=== PATIENT | male | born 1965 | race Caucasian/White ===

== ENCOUNTER 2024-01-25 10:43 | Outpatient (AMB) | payer OTHER, SELFPAY ==
--- NOTE | 2024-01-25 11:13 | MHC.PC.OV ---
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 Patient has concern for bilateral ears and may need a referral to ENT. Patient has a spot on the right anticubital space he would like looked at. Data Entry Representative Required: No Accompanied by: Self / Same As Patient Allergies lisinopril Allergy (Severe, Verified 01/25/24 11:39) Cough Medication List - Last Reconciled 01/25/24 by Fouzia Darling MD amlodipine 10 mg PO DAILY ciclopirox 8% topical clotrimazole-betamethasone 1-0.05 % 1 appl topical BID 4 weeks duloxetine 30 mg PO DAILY ketoconazole 2% 1 appl topical 2XW metoprolol succinate ER 25 mg PO BID 90 days metronidazole 0.75% 1 appl topical BEDTIME pantoprazole 40 mg PO DAILY Tobacco use date assessed: 01/25/24 Dental Screening Dental Screen Date: 01/25/24 Did you have a dental visit in the last 12 months?: No Did you have a dental problem in the last 6 months where you did not have access to dental care?: No Was dental information given to patient?: Patient has dentist HPI HPI Comments History of Present Illness Details The patient is a 58-year-old male with a past medical history of hypertension, thoracic aortic aneurysm status post repair, ocular migraines, alcohol abuse elevated LFTs presenting today for follow-up CV: Blood pressure controlled. Patient is currently on amlodipine and metoprolol. He is not currently on a statin. He had a cardiac catheterization in 2021. Echo 10/2021 with normal EF, mild aortic regurgitation. There was mild dilation of the aortic root. The ascending aorta was moderately dilated measured 4.5 in the pulmonary arterial systolic pressure was 22. He is s/p repair GI: Decreased from 5 drinks a night. Liver function tests have been persistently elevated. No abdominal pain or bloating. Upper endoscopy in 2019 with dilation of esophageal stricture. No interval issues. [facility] GI Derm: Reports a family history of skin cancer and at his visit in July requested a Dermatology visit. He had a few lesions removed Neuro: MRI performed. Migraines stable Psych: stable Has seen Urology in the past for hydronephrosis. ED History of colonic polyp. Colonoscopy 05/2021. ROS CONSTITUTIONAL: Denies weight loss, fever and chills. HEENT: Denies changes in vision and hearing. RESPIRATORY: Denies SOB and cough. CV: Denies palpitations and CP GI: Denies abdominal pain, nausea, vomiting and diarrhea. : Denies dysuria and urinary frequency. MSK: Denies new myalgia and joint pain. SKIN: Denies rash and pruritus. NEUROLOGICAL: Denies headache PSYCHIATRIC: Denies recent changes in mood. PHYSICAL EXAM: GENERAL: Alert and oriented x 3. NAD EYES: EOMI. Anicteric. HENT: Moist mucous membranes. No scleral icterus. No cervical lymphadenopathy. LUNGS: Clear to auscultation bilaterally. CARDIOVASCULAR: Regular rate and rhythm. No murmur. No JVD. ABDOMEN: Soft, non-tender +bs EXTREMITIES: No edema. Non-tender. SKIN: No rashes or lesions. Warm. NEUROLOGIC: No focal neurological deficits. CN II-XII grossly intact PSYCHIATRIC: Cooperative. Appropriate mood and affect [facility] Medical History (Updated 01/25/24 @ 13:34 by Fouzia Darling MD) Abnormal endoscopy of upper gastrointestinal tract Pulmonary hypertension Polyp of colon Peripheral nerve disease Ocular migraine Lumbar pain with radiation down right leg Lower esophageal ring Hypertension Septic shock Acute respiratory failure Hiatal hernia Ganglion of tendon sheath Eosinophilic pneumonia Elevated LFTs Thoracic aortic aneurysm History of cardiomegaly Pollen allergies Alcohol use disorder Surgical History History of dental surgery History of tonsillectomy and adenoidectomy Status post dilatation of esophageal stricture History of colonoscopy History of cardiac catheterization Hx of ascending aorta replacement Family History Mother Alzheimer dementia Father Prostate cancer Sarcoma Sister AAA (abdominal aortic aneurysm) Breast cancer Social History Household Members: Significant Other Both parents involved: No Caregiver staying overnight: No Housing: House Are you a primary animal care assistant to a significant other at home: No Do you presently have visiting nurse or other home services: No 75 years or older and lives alone: No Alcohol intake: current Alcohol intake frequency: 3 or more drinks per day Alcohol type: beer Patient Tobacco Use Status: Never used Tobacco e-Cigarette/Vaping Use: Never Used Second Hand Smoke Exposure: Yes service: No Current occupational status: employed Current occupation: [employer] Current occupational exposures/hazards: No Cognitive needs: No Hearing needs: Yes Vision needs: Yes Questionnaire PHQ-9 Over the last 2 weeks, how often have you been bothered by any of the following problems? 1. Little interest or pleasure in doing things: not at all 2. Feeling down, depressed, or hopeless: not at all 3. Trouble falling or staying asleep, or sleeping too much: not at all 4. Feeling tired or having little energy: not at all 5. Poor appetite or overeating: not at all 6. Feeling bad about yourself - or that you are a failure or have let yourself or your family down: not at all 7. Trouble concentrating on things, such as reading the newspaper or watching television: not at all 8. Moving or speaking so slowly that other people could have noticed. Or the opposite - being so fidgety or restless that you have been moving around a lot more than usual: not at all 9. Thoughts that you would be better off or of hurting yourself in some way: not at all Total score: 0 Depression Screening Interpretation: Negative (neg) Depression Screening Done: Yes 45369 - PHQ-9 Billing: Yes Source: Developed by Drs. Jayce Christopher, Nida Fraser, Marcell Damico and colleagues, with an educational robb from [employer]. Thrive Questionnaire Date Thrive assessed: 01/25/24 I am a: Patient What is your living situation today?: I have a steady place to live Within the past 12 months, did the food you bought not last and you didn't have the money to get more?: Never true Within the past 12 months, did you worry whether your food would run out before you got money to buy more?: Never true Do you have trouble paying for medicines?: No Do you have trouble getting transportation to medical appointments?: No Do you have trouble paying your heating and electricity bill?: Yes Do you have trouble taking care of your child, family member or friend?: No Do you have trouble with day-to-day activities such as bathing, preparing meals, shopping, managing finances, etc.?: No Are you currently unemployed and looking for a job?: No Are you interested in more education?: No Please select the resources that you would like help with: None Currently or been in a relationship where the following occur: No concerns reported THRIVE Score: 1 AUDIT C Alcohol Use Questionnaire (AUDIT-C) 1. How often do you have a drink containing alcohol?: 4 or more times a week 2. How many drinks containing alcohol do you have on a typical day when you are drinking?: 3 or 4 3. How often do you have six or more drinks on one occasion?: Never Total Score: 5 JIGNESH-7 AMB Questionnaire JIGNESH-7 Date JIGNESH - 7 assessed: 01/25/24 Feeling nervous, anxious, or on edge: 0 = Not at all Not being able to stop or control worryin = Not at all Worrying too much about different things: 0 = Not at all Trouble relaxin = Not at all Being so restless that it is hard to sit still: 0 = Not at all Becoming easily annoyed or irritable: 0 = Not at all Feeling afraid as if something awful might happen: 0 = Not at all Total JIGNESH-7 score (0-4 normal; 5-9 mild; 10-14 moderate; 15-21 severe): 0 Source: Developed by Drs. Jayce Christopher, Nida Fraser, Marcell Damico and colleagues, with an educational robb from [employer]. JIGNESH-7 Assessment Billing JIGNESH-7 Assessment Tool: JIGNESH-7 Assessment 55235 Physical exam (Primary Care) Vital Signs: Last Vital Signs Pulse 79 01/25/24 11:14 Resp 13 01/25/24 11:14 BP 116/66 01/25/24 11:14 Pulse Ox 96 01/25/24 11:14 Oxygen Delivery Method Room Air 01/25/24 11:14 BMI result Body Mass Index 23.2 Tobacco/Smoking Status: Tobacco use Status Tobacco use date assessed 01/25/24 01/25/24 11:23 Patient Tobacco Use Status Never used Tobacco 01/25/24 11:23 e-Cigarette/Vaping Use Never Used 01/25/24 11:23 PHQ-9: PHQ-9 Score PHQ-9: Total score 0 01/25/24 11:23 Depression Screening Interpretation: Negative (neg) Thrive Assessment: Date of Thrive Assessment Date Thrive assessed 01/25/24 01/25/24 11:23 Currently or been in a relationship where the following occur: No concerns reported Assessment and Plan Assessment & Plan (1) Ocular migraine: Code(s): G43.109 - Migraine with aura, not intractable, without status migrainosus Plan: stable. Interval MRI (2) Hypertension: Code(s): I10 - Essential (primary) hypertension Qualifiers: Hypertension type: primary hypertension Qualified Code(s): I10 - Essential (primary) hypertension Plan: continue current medications. Has cut back and continues to cut back on ETOH (3) Thoracic aortic aneurysm: Code(s): I71.20 - Thoracic aortic aneurysm, without rupture, unspecified Qualifiers: Thoracic aorta location: unspecified Presence of rupture: without rupture Qualified Code(s): I71.20 - Thoracic aortic aneurysm, without rupture, unspecified Plan: s/p repair. Orders: Orders Comprehensive Met. Panel Today I10 - Essential (primary) hypertension, R25.1 - Tremor, unspecified, R79.89 - Other specified abnormal findings of blood chemistry, Z12.5 - Encounter for screening for malignant neoplasm of prostate Lipid Panel Today I10 - Essential (primary) hypertension, R25.1 - Tremor, unspecified, R79.89 - Other specified abnormal findings of blood chemistry, Z12.5 - Encounter for screening for malignant neoplasm of prostate Hemoglobin A1c Today I10 - Essential (primary) hypertension, R25.1 - Tremor, unspecified, R79.89 - Other specified abnormal findings of blood chemistry, Z12.5 - Encounter for screening for malignant neoplasm of prostate TSH reflex Free T4 Today I10 - Essential (primary) hypertension, R25.1 - Tremor, unspecified, R79.89 - Other specified abnormal findings of blood chemistry, Z12.5 - Encounter for screening for malignant neoplasm of prostate Complete Blood Count Auto Diff Today I10 - Essential (primary) hypertension, R25.1 - Tremor, unspecified, R79.89 - Other specified abnormal findings of blood chemistry, Z12.5 - Encounter for screening for malignant neoplasm of prostate Prostate Specific Antigen Today I10 - Essential (primary) hypertension, R25.1 - Tremor, unspecified, R79.89 - Other specified abnormal findings of blood chemistry, Z12.5 - Encounter for screening for malignant neoplasm of prostate Pathologist Review - CBC Today I10 - Essential (primary) hypertension, R25.1 - Tremor, unspecified, R79.89 - Other specified abnormal findings of blood chemistry, Z12.5 - Encounter for screening for malignant neoplasm of prostate Vitamin B12 and Folate Today I10 - Essential (primary) hypertension, R25.1 - Tremor, unspecified, R79.89 - Other specified abnormal findings of blood chemistry, Z12.5 - Encounter for screening for malignant neoplasm of prostate Medications: New clotrimazole-betamethasone 1-0.05 % 1 appl topical BID 4 weeks 45 grams 3RF metoprolol succinate ER FOR REFILLS 25 mg PO BID 90 days 180 tabs 3RF duloxetine FOR REFILLS 30 mg PO DAILY 90 caps 3RF Coding Level of Care Code Est Pt Level 5 (75724) Diagnoses Ocular migraine G43.109 Primary hypertension I10 Hypertension type: primary hypertension Thoracic aortic aneurysm without rupture, unspecified part I71.20 Thoracic aorta location: unspecified Presence of rupture: without rupture Additional Codes JIGNESH-7 Assessment Billing - JIGNESH-7 Assessment Tool: JIGNESH-7 Assessment 46157 ([id number]) Time Spent (min) 44
[2024-01-25 11:14] VITALS: BP 116/66; PULSE 79; RESP 13; O2SAT 96; BMI 23.2
== END 2024-01-25 12:02 | disposition home or self-care (01) ==
PROVIDERS: PCP Internal Medicine; Visit Provider Internal Medicine
DX: G43.109 Migraine with aura, not intractable, without status migrainosus (principal); I10 Essential (primary) hypertension; I71.20 Thoracic aortic aneurysm, without rupture, unspecified
CPT/HCPCS: 99215

== ENCOUNTER 2024-01-29 15:39 | Outpatient (REF) | payer OTHER, SELFPAY ==
[2024-01-29 17:39] LABS: MANUAL DIFF FLAG NO
[2024-01-29 18:13] LABS: Basophils Absolute Auto 0.1 X10*3/uL (0.0-0.2); Basophils Percent Auto 1.1 % (0-2); Eosinophils Absolute Auto 0.1 X10*3/uL (0.0-0.4); Eosinophils Percent Auto 1.1 % (0-4); Hematocrit 42.4 % (42.0-52.0); Hemoglobin 14.3 g/dl (14.0-18.0); Imm Gran Abs Auto 0.01 X10*3/uL (0.00-0.03); Imm Gran Pct Auto 0.2 % (0.0-0.4); Lymphocytes Absolute Auto 0.8 X10*3/uL (1.2-4.9); Lymphocytes Percent Auto 13.7 % (20-40); Mean Corpuscular HGB Conc 33.7 g/dl (31.0-36.0); Mean Corpuscular Hemoglobin 32.4 pg (27.0-33.0); Mean Corpuscular Volume 96.1 fL (80.0-98.0); Mean Platelet Volume 9.4 fL (9.4-12.4); Monocytes Percent Auto 17.8 % (2-11); Neutrophils Absolute Auto 3.7 x10*3/uL (2.0-8.3); Neutrophils Percent Auto 66.1 % (45-73); Platelet Count 275 X10*3/uL (160-400); Red Blood Count 4.41 X10*6/uL (4.60-5.80); White Blood Count 5.6 X10*3/uL (4.8-10.8)
[2024-01-29 18:26] LABS: Alanine Aminotransferase 82 U/L (0-40); Albumin Level 4.3 g/dL (3.5-5.0); Alkaline Phosphatase 90 U/L (39-117); Anion Gap 13 (12-20); Aspartate Amino Transferase 53 U/L (5-37); Bilirubin Total 0.5 mg/dL (0.0-1.0); Blood Urea Nitrogen 17 mg/dL (9-16); Calcium 9.8 mg/dL (8.4-10.2); Carbon Dioxide 30 mmol/L (22-29); Chloride 97 mmol/L (96-108); Cholesterol 227 mg/dL (<200); Estimated Glomerular Filt Rate > 60; Glucose Random 88 mg/dL (60-115); HDL Cholesterol 72 mg/dL (>40); LDL Cholesterol Calculated 129 mg/dL (<100); Potassium 4.1 mmol/L (3.3-5.1); Sodium 136 mmol/L (135-145); Total Protein 7.6 g/dL (6.5-8.0); Triglycerides 133 mg/dL (<150)
[2024-01-29 18:42] LABS: TSH reflex Free T4 2.79 uIU/mL (0.32-4.0)
[2024-01-29 18:55] LABS: Folate 10.9 ng/mL (> or = 4.0); Prostate Specific Antigen 3.14 ng/mL (<0.05-4.0); Vitamin B12 1435 pg/mL (200-900)
[2024-01-30 05:17] LABS: Estimated Average Glucose 111 mg/dL; Hemoglobin A1c % 5.5 % (<6.0)
== END 2024-01-29 15:40 | disposition home or self-care (01) ==
LOC: HO.WFDLDS 15:39
PROVIDERS: Visit Provider Internal Medicine
DX: I10 Essential (primary) hypertension (principal); Z12.5 Encounter for screening for malignant neoplasm of prostate; R25.1 Tremor, unspecified; R79.89 Other specified abnormal findings of blood chemistry
CPT/HCPCS: 80053; 80061; 82607; 82746; 83036; 84153; 84443; 85025

== ENCOUNTER 2024-08-05 08:27 | Outpatient (AMB) | payer OTHER, SELFPAY ==
--- NOTE | 2024-08-05 08:29 | MHC.PC.OV ---
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: No Allergies lisinopril Allergy (Severe, Verified 08/05/24 08:29) Cough Medication List - Last Reconciled 08/05/24 by Fouzia Darling MD amlodipine 10 mg PO DAILY aspirin (Adult Low Dose Aspirin) 81 mg PO DAILY duloxetine 30 mg PO DAILY metoprolol succinate ER 25 mg PO BID 90 days pantoprazole 40 mg PO DAILY Tobacco use date assessed: 01/25/24 Dental Screening Dental Screen Date: 01/25/24 HPI HPI Comments History of Present Illness Details The patient is a 59-year-old male with a past medical history of hypertension, thoracic aortic aneurysm status post repair, ocular migraines, alcohol abuse elevated LFTs presenting today for follow-up CV: Follows with Dr Justice. Blood pressure controlled, 128/58. Patient is currently on amlodipine and metoprolol. He had a cardiac catheterization in 2021. Echo 10/2021 with normal EF, mild aortic regurgitation. There was mild dilation of the aortic root. The ascending aorta was moderately dilated measured 4.5 in the pulmonary arterial systolic pressure was 22. He is s/p repair GI: Decreased from 5 drinks a night. Liver function tests have been persistently elevated. No abdominal pain or bloating. Upper endoscopy in 2019 with dilation of esophageal stricture. No interval issues. [facility] GI Derm: Has seen [facility]. Got removal of some precancerous lesions. Would like to return for skin check Neuro: MRI performed. Migraines stable Psych: stable Has seen Urology in the past for hydronephrosis. ED stable History of colonic polyp. Colonoscopy 05/2021. ROS CONSTITUTIONAL: Denies weight loss, fever and chills. HEENT: Denies changes in vision and hearing. RESPIRATORY: Denies SOB and cough. CV: Denies palpitations and CP GI: Denies abdominal pain, nausea, vomiting and diarrhea. : Denies dysuria and urinary frequency. MSK: Denies new myalgia and joint pain. SKIN: Denies rash and pruritus. NEUROLOGICAL: Denies headache PSYCHIATRIC: Denies recent changes in mood. PHYSICAL EXAM: GENERAL: Alert and oriented x 3. NAD EYES: EOMI. Anicteric. HENT: Moist mucous membranes. No scleral icterus. No cervical lymphadenopathy. LUNGS: Clear to auscultation bilaterally. CARDIOVASCULAR: Regular rate and rhythm. No murmur. No JVD. ABDOMEN: Soft, non-tender +bs EXTREMITIES: No edema. Non-tender. SKIN: No rashes or lesions. Warm. NEUROLOGIC: No focal neurological deficits. CN II-XII grossly intact PSYCHIATRIC: Cooperative. Appropriate mood and affect [facility] Medical History Abnormal endoscopy of upper gastrointestinal tract Pulmonary hypertension Polyp of colon Peripheral nerve disease Ocular migraine Lumbar pain with radiation down right leg Lower esophageal ring Hypertension Septic shock Acute respiratory failure Hiatal hernia Ganglion of tendon sheath Eosinophilic pneumonia Elevated LFTs Thoracic aortic aneurysm History of cardiomegaly Pollen allergies Alcohol use disorder Surgical History History of dental surgery History of tonsillectomy and adenoidectomy Status post dilatation of esophageal stricture History of colonoscopy History of cardiac catheterization Hx of ascending aorta replacement Family History Mother Alzheimer dementia Father Prostate cancer Sarcoma Sister AAA (abdominal aortic aneurysm) Breast cancer Social History Household Members: Significant Other Both parents involved: No Caregiver staying overnight: No Housing: House Are you a primary critical care unit nurse to a significant other at home: No Do you presently have visiting nurse or other home services: No 75 years or older and lives alone: No Alcohol intake: current Alcohol intake frequency: 3 or more drinks per day Alcohol type: beer Patient Tobacco Use Status: Never used Tobacco e-Cigarette/Vaping Use: Never Used Second Hand Smoke Exposure: Yes service: No Current occupational status: employed Current occupation: [employer] Current occupational exposures/hazards: No Cognitive needs: No Hearing needs: Yes Vision needs: Yes Questionnaire PHQ-9 Over the last 2 weeks, how often have you been bothered by any of the following problems? 1. Little interest or pleasure in doing things: not at all 2. Feeling down, depressed, or hopeless: not at all 3. Trouble falling or staying asleep, or sleeping too much: not at all 4. Feeling tired or having little energy: not at all 5. Poor appetite or overeating: not at all 6. Feeling bad about yourself - or that you are a failure or have let yourself or your family down: not at all 7. Trouble concentrating on things, such as reading the newspaper or watching television: not at all 8. Moving or speaking so slowly that other people could have noticed. Or the opposite - being so fidgety or restless that you have been moving around a lot more than usual: not at all 9. Thoughts that you would be better off or of hurting yourself in some way: not at all Total score: 0 Depression Screening Interpretation: Negative Depression Screening Done: Yes 73840 - PHQ-9 Billing: Yes Source: Developed by Drs. Jayce Christopher, Nida Fraser, Marcell Damico and colleagues, with an educational robb from [employer]. Thrive Questionnaire Date Thrive assessed: 08/05/24 I am a: Patient What is your living situation today?: I have a steady place to live Within the past 12 months, did the food you bought not last and you didn't have the money to get more?: Never true Within the past 12 months, did you worry whether your food would run out before you got money to buy more?: Never true Do you have trouble paying for medicines?: No Do you have trouble getting transportation to medical appointments?: No Do you have trouble paying your heating and electricity bill?: Yes Do you have trouble taking care of your child, family member or friend?: No Do you have trouble with day-to-day activities such as bathing, preparing meals, shopping, managing finances, etc.?: No Are you currently unemployed and looking for a job?: No Are you interested in more education?: No Please select the resources that you would like help with: Utilities Currently or been in a relationship where the following occur: No concerns reported THRIVE Score: 1 AUDIT C Alcohol Use Questionnaire (AUDIT-C) 1. How often do you have a drink containing alcohol?: 2-3 times a week 2. How many drinks containing alcohol do you have on a typical day when you are drinking?: 1 or 2 3. How often do you have six or more drinks on one occasion?: Never Total Score: 3 JIGNESH-7 AMB Questionnaire JIGNESH-7 Date JIGNESH - 7 assessed: 08/05/24 Feeling nervous, anxious, or on edge: 0 = Not at all Not being able to stop or control worryin = Not at all Worrying too much about different things: 0 = Not at all Trouble relaxin = Not at all Being so restless that it is hard to sit still: 0 = Not at all Becoming easily annoyed or irritable: 0 = Not at all Feeling afraid as if something awful might happen: 0 = Not at all Total JIGNESH-7 score (0-4 normal; 5-9 mild; 10-14 moderate; 15-21 severe): 0 Source: Developed by Drs. Jayce Christopher, Nida Fraser, Marcell Damico and colleagues, with an educational robb from [employer]. JIGNESH-7 Assessment Billing JIGNESH-7 Assessment Tool: JIGNESH-7 Assessment 46801 Physical exam (Primary Care) Vital Signs: Last Vital Signs Pulse 56 08/05/24 08:34 Resp 14 08/05/24 08:34 BP 128/58 L 08/05/24 08:34 Pulse Ox 95 08/05/24 08:34 Oxygen Delivery Method Room Air 08/05/24 08:34 BMI result Body Mass Index 22.9 Tobacco/Smoking Status: Tobacco use Status Tobacco use date assessed 01/25/24 08/05/24 08:30 Patient Tobacco Use Status Never used Tobacco 08/05/24 08:38 e-Cigarette/Vaping Use Never Used 08/05/24 08:38 PHQ-9: PHQ-9 Score PHQ-9: Total score 0 08/05/24 08:41 Depression Screening Interpretation: Negative Thrive Assessment: Date of Thrive Assessment Date Thrive assessed 08/05/24 08/05/24 08:36 Currently or been in a relationship where the following occur: No concerns reported Coding Level of Care Code Est Pt Prev Care 40-64y(07471) Diagnoses Physical exam Z00.00 Primary hypertension I10 Hypertension type: primary hypertension Thoracic aortic aneurysm without rupture, unspecified part I71.20 Thoracic aorta location: unspecified Presence of rupture: without rupture Additional Codes JIGNESH-7 Assessment Billing - JIGNESH-7 Assessment Tool: JIGNESH-7 Assessment 94416 ([id number]) PHQ-9 - 42318 - PHQ-9 Billing: Yes ([id number]) Assessment & Plan Assessment & Plan (1) Physical exam: Code(s): Z00.00 - Encounter for general adult medical examination without abnormal findings Category: Medical Plan: 59 year old for physical exam. Chronic medical conditions reviewed. Interval history reviewed. Preventive measures for age reviewed. Medications reviewed. Labs ordered (2) Hypertension: Code(s): I10 - Essential (primary) hypertension Category: Medical Qualifiers: Hypertension type: primary hypertension Qualified Code(s): I10 - Essential (primary) hypertension Plan: well controlled on current medications (3) Thoracic aortic aneurysm: Code(s): I71.20 - Thoracic aortic aneurysm, without rupture, unspecified Category: Medical Qualifiers: Thoracic aorta location: unspecified Presence of rupture: without rupture Qualified Code(s): I71.20 - Thoracic aortic aneurysm, without rupture, unspecified Plan: continue follow up with cardiology for monitoring Orders: Orders Comprehensive Met. Panel Today I10 - Essential (primary) hypertension, I71.20 - Thoracic aortic aneurysm, without rupture, unspecified, Z00.00 - Encounter for general adult medical examination without abnormal findings Lipid Panel Today I10 - Essential (primary) hypertension, I71.20 - Thoracic aortic aneurysm, without rupture, unspecified, Z00.00 - Encounter for general adult medical examination without abnormal findings Pathologist Review - CBC Today I10 - Essential (primary) hypertension, I71.20 - Thoracic aortic aneurysm, without rupture, unspecified, Z00.00 - Encounter for general adult medical examination without abnormal findings TSH reflex Free T4 Today I10 - Essential (primary) hypertension, I71.20 - Thoracic aortic aneurysm, without rupture, unspecified, Z00.00 - Encounter for general adult medical examination without abnormal findings Prostate Specific Antigen Today Z12.5 - Encounter for screening for malignant neoplasm of prostate Complete Blood Count Auto Diff Today I10 - Essential (primary) hypertension, I71.20 - Thoracic aortic aneurysm, without rupture, unspecified, Z00.00 - Encounter for general adult medical examination without abnormal findings Referrals Dermatology Referral I10 - Essential (primary) hypertension, I71.20 - Thoracic aortic aneurysm, without rupture, unspecified, Z00.00 - Encounter for general adult medical examination without abnormal findings Medications: New amlodipine 10 mg PO DAILY 90 tabs 3RF pantoprazole 40 mg PO DAILY 90 tabs 3RF Changed From metoprolol succinate ER FOR REFILLS 25 mg PO BID 90 days 180 tabs 3RF To metoprolol succinate ER 25 mg PO BID 90 days 180 tabs 3RF From duloxetine FOR REFILLS 30 mg PO DAILY 90 caps 3RF To duloxetine 30 mg PO DAILY 90 caps 3RF
[2024-08-05 08:34] VITALS: BP 128/58; PULSE 56; RESP 14; O2SAT 95; BMI 22.9
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
--- OUTSIDE RECORDS SUMMARY | 2024-08-05 09:09 | XMS_ITS | Clinical Summary ---
Author Organization [facility] Address [address] [place] [address] Care Team Providers Care Cook Helper Fruit Name Role Phone Fouzia Darling MD Primary Care Provider [phone] Allergies No known active allergies Medications LORazepam (Ativan) 2 mg tablet Take 1 tablet (2 mg total) by mouth every 4 (four) hours as needed for anxiety (shaking) for up to 3 days. 6 tablet 07/08/2024 Active Active Problems No known active problems Encounters Date Type Department Care Team Description 07/08/2024 6:24 PM EST - 07/08/2024 9:58 PM EST Emergency [facility] Department of Emergency Services [address] [place] [address] Dat Muro MD Alcohol withdrawal syndrome without complication (HCC) (Primary Dx) Discharge Disposition: Home or Self Care from Last 3 Months Social History Tobacco Use Types Packs/Day Years [...] No / Unsure 07/08/2024 5:00 PM EST Last Filed Vital Signs Vital Sign Reading [...] Mass Index 22.52 07/08/2024 5:02 PM EST Plan of Treatment Health Maintenance Due Date Last Done Comments CT Colonography 1964 Colonoscopy 1964 Colorectal Cancer Screening 1964 FIT-DNA (Cologuard) 1964 FIT 1964 FOBT 1964 Flex Sigmoidoscopy - 5y 1964 HIV Screening 1964 Hepatitis C Screening 1982 Zoster Vaccines (1 of 2) 2014 COVID-19 Vaccine ( season) 2024 Influenza Vaccine (#1) 2024 2, 05/09/2021, 03/15/2020, Additional history exists DTaP,Tdap,and Td Vaccines (2 - Td or Tdap) 03/20/2029 03/20/2019 HPV Vaccines Aged Out No longer eligi ble based on patient's age to complete this topic Hepatitis A Vaccines Aged Out No long er eligible based on patient's age to complete this topic MMR Vaccines Aged Out No longer eligi ble based on patient's age to complete this topic Meningococcal Vaccine Aged Out No cameron william eligible based on patient's age to complete this topic Pneumococcal Vaccine: Pediatrics (0 to 5 Years) and At-Risk Patients (6 to 64 Years) Aged Out No longer eligible based on patient's age to complete this topic Procedures Procedure Name Priority Date/Time Associated Diagnosis Comments XR CHEST 2 VW STAT 07/08/2024 9:[address] HEAD WO IV CONTRAST STAT 07/08/2024 8:48 PM EST COMPLETE BLOOD COUNT WITH AUTO DIFFERENTIAL STAT 07/08/2024 7:38 PM EST LACTIC ACID, PLASMA STAT 07/08/2024 7 :38 PM EST HEPATIC FUNCTION PANEL STAT 07/08/2024 7:38 PM EST BASIC METABOLIC PANEL STAT 07/08/2024 7:38 PM EST COMPLETE BLOOD COUNT AND DIFFERENTIAL STAT 07/08/2024 7:38 PM EST SARS, INFLUENZA A, B, AND RSV PCR (CEPHEID) Routine 07/08/2024 7:38 PM EST POCT GLUCOSE METER STAT 07/08/2024 5: 30 PM EST from Last 3 Months Results * XR chest 2 vw (07/08/2024 [...] to the content of this report. AF^0 Dat Muro MD IMG XR PROCEDURES Final [...] the final report indicates that Julio Kim has personally reviewed this examination initially [...] report. AF^0 us Dat Muro MD IMG CT PROCEDURES Final Result * SARS, Influenza A,B, and RSV PCR (CEPHEID) (07/08/2024 7:38 PM EST) SARS-COV-2 PCR (Cepheid) Negative Negative 07/08/2024 10:16 PM EST [facility] Influenza A PCR (Cepheid) Not Detected Not Detected 07/08/2024 10:16 PM EST [facility] Influenza B PCR (Cepheid) Not Detected Not Detected 07/08/2024 10:16 PM EST [facility] RSV PCR (Cepheid) Not Detected Not Detected 07/08/2024 10:16 PM EST [facility] Swab Nasopharyngeal structure / Unknown Non-blood Collection / Unknown 07/08/2024 7:38 PM EST 07/08/2024 7:51 PM EST [facility] - 07/08/2024 10:16 PM EST The CepOwnLocalid Flu A/B/RSV/SARS CoV-2 assay performed on the [employer] System is a multiplex real-time RT-PCR intended for the qualitative detection and differentiation of influenza A, influenza B, RSV, and SARS CoV-2 RNA in nasopharyngeal or anterior nasal swab specimens from patients exhibiting signs/symptoms of respiratory viral illness. ??The test is FDA-cleared, and its performance was verified by [facility]. ?? A negative/not detected result does not exclude viral infection and should not be used as the sole basis for treatment or patient management decisions. ?? Results must be considered in the context of clinical observations, patient history, and epidemiological information. us Dat Muro MD LAB MICRO - GENERAL ORDERABLES NO STAT Final Result Performing Organization Address City/State/[facility] Co de Phone Number [facility] [address] [place] [address], * (ABNORMAL) Complete Blood Count with Auto Differential (07/08/2024 7:38 PM EST) Pathologist [facility] White Cell Count 5.2 3.8 - 10.6 10*3/uL 07/08/2024 8:00 PM EST [facility] Red Cell Count 4.81 4.40 - 5.90 10*6/??L 07/08/2024 8:00 PM [facility] Hemoglobin 15.5 13.0 - 18.0 g/dL 07/08/2024 8:00 PM [facility] Hematocrit 46.5 40.0 - 52.0 % 07/08/2024 8:00 PM [facility] MCV 96.7 80.0 - 100.0 fL 07/08/2024 8:00 PM [facility] MCH 32.2 26.0 - 34.0 pg 07/08/2024 8:00 PM [facility] MCHC 33.3 32.0 - 36.0 g/dL 07/08/2024 8:00 PM [facility] RBC Distribution Width 12.3 11.6 - 14.8 % 07/08/2024 8:00 PM [facility] Platelet count 160 150 - 440 10*3/uL 07/08/2024 8:00 PM [facility] Neutrophils 71.7(H) 40.0 - 70.0 % 07/08/2024 8:00 PM [facility] Immature Granulocytes 0.2 0.0 - 0.6 % 07/08/2024 8:00 PM [facility] Lymphocytes 10.4(L) 20.0 - 50.0 % 07/08/2024 8:00 PM [facility] Monocytes 16.9(H) 4.0 - 12.0 % 07/08/2024 8:00 PM [facility] Eosinophils 0.2 0.0 - 6.0 % 07/08/2024 8:00 PM [facility] Basophils 0.6 0.0 - 2.0 % 07/08/2024 8:00 PM [facility] Absolute Neutrophil Ct. 3.7 1.4 - 6.3 10*3/uL 07/08/2024 8:00 PM [facility] Absolute Lymphocyte Ct. 0.5(L) 0.7 - 4.5 10*3/uL 07/08/2024 8:00 PM EST [facility] Absolute Monocyte Ct. 0.9(H) 0.2 - 0.8 10*3/uL 07/08/2024 8:00 PM EST [facility] Absolute Eosinophil Ct. 0.0 0.0 - 0.3 10*3/uL 07/08/2024 8:00 PM EST [facility] Absolute Basophil Ct. 0.0 0.0 - 0.2 10*3/uL 07/08/2024 8:00 PM EST [facility] nRBC 0.0 0.0 - 0.0 % 07/08/2024 8:00 PM EST [facility] Blood Venous blood specimen / Unknown Venipuncture / Unknown 07/08/2024 7:38 PM EST 07/08/2024 7:54 PM EST Dat Muro MD LAB BLOOD ORDERABLES Final Res ult [facility] [address] [place] [address], [place] [phone] * Lactic acid, plasma (07/08/2024 7:38 PM EST) Lactic Acid 0.8 0.5 - 1.9 mmol/L 07/08/2024 8:20 PM EST [facility] Blood Venous blood specimen / Unknown Venipuncture / Unknown 07/08/2024 7:38 PM EST 07/08/2024 7:55 PM EST us Dat Muro MD LAB BLOOD ORDERABLES Final Res ult [facility] [address] [place] [address], [place] [phone] * (ABNORMAL) Hepatic function panel (07/08/2024 7:38 PM EST) Total Bilirubin 0.8 0.1 - 1.2 mg/dL 07/08/2024 8:22 PM EST [facility] Bilirubin, Direct 0.4 0.0 - 0.5 mg/dL 07/08/2024 8:22 PM EST [facility] Alkaline Phosphatase 106 39 - 113 U/L 07/08/2024 8:22 PM EST [facility] AST 100(H) 17 - 35 U/L 07/08/2024 8:22 PM EST [facility] ALT (SGPT) 101(H) 8 - 39 U/L 07/08/2024 8:22 PM EST [facility] Albumin 4.7 3.8 - 5.3 g/dL 07/08/2024 8:22 PM EST [facility] Total Protein 8.1 6.2 - 8.1 g/dL 07/08/2024 8:22 PM EST [facility] Blood Venous blood specimen / Unknown Venipuncture / Unknown 07/08/2024 7:38 PM EST 07/08/2024 7:55 PM EST us Dat Muro MD LAB BLOOD ORDERABLES Final Res ult Performing Organization Address City/State/[facility] Co de Phone Number [facility] [address] [place] [address], * (ABNORMAL) Basic metabolic panel (07/08/2024 7:38 PM EST) Pathologist [facility] Sodium 139 137 - 144 mmol/L 07/08/2024 8:22 PM EST [facility] Potassium 4.8 3.6 - 5.1 mmol/L 07/08/2024 8:22 PM EST [facility] Chloride 100 100 - 111 mmol/L 07/08/2024 8:22 PM EST [facility] CO2 28 23 - 32 mmol/L 07/08/2024 8:22 PM [facility] Anion gap 11 3 - 11 mmol/L 07/08/2024 8:22 PM [facility] BUN 14 8 - 24 mg/dL 07/08/2024 8:22 PM [facility] Creatinine 0.80 0.60 - 1.20 mg/dL 07/08/2024 8:22 PM [facility] Glucose 93 70 - 200 mg/dL 07/08/2024 8:22 PM [facility] Comment: Normal fasting glucose ?75-99 mg/dL Impaired fasting glucose ?100 - 125 mg/dL Fasting glucose ? >125 mg/dL - provisional diagnosis of diabetes mellitus Random glucose ?>= 200 mg/dl is considered diagnostic for diabetes ADA Guidelines: Classification and Diagnosis of Diabetes: Standards of Medical Care in Diabetes - 2020, Diabetes Care 2020; S15-S33. Calcium 10.6(H) 8.4 - 10.2 mg/dL 07/08/2024 8:22 PM [facility] eGFR 101 >60 mL/min/1. 73m*2 07/08/2024 8:22 PM [facility] Comment: Calculation based on the Chronic [...] ? 75 ml/min/1.73 m2 ? Pursuant to [place] Public Act 06-120(1)(b)(1). ?? The 2020 CKD-EPI calculation used to estimate eGFR has only been validated for patients 18 years or older. Blood Venous blood specimen / Unknown Venipuncture / Unknown 07/08/2024 7:38 PM EST 07/08/2024 7:55 PM EST us Dat Muro MD LAB BLOOD ORDERABLES Final Res ult [facility] [address] [place] [address], * POCT Glucose, meter (07/08/2024 5:30 PM EST) POCT Glucose 87 70 - 200 mg/dL 07/08/2024 5:31 PM EST [facility] Blood 07/08/2024 5:30 PM EST 07/08/2024 5:31 PM EST Narrative [facility] - 07/08/2024 5:31 PM EST The lower limit of serum glucose reference interval changes from 75 mg/dL to 70 mg/dL on 12/28/2021 to comply with [place] Diabetes Association (ADA)guidelines. Point of Care Device. ??Please refer to collection date and time. us Default Authenticator Interface LAB POCT ORDERAB LES - DEVICE Final Result [facility] [address] [place] [address], from Last 3 Months Insurance [facility] OPEN ACCESS Care Teams Cook Helper Fruit Relationship Specialty Start Date End Date Fouzia Darling MD [address] [place] [phone] PCP - General Internal Medicine 07/08/24
--- OUTSIDE RECORDS SUMMARY | 2024-08-05 09:10 | XMS_ITS | Encounter Summary ---
Author Organization [facility] Address [address] [place] [address] Care Team Providers Care Spare Hand Name Role Phone Pcp, No Primary Care Provider Unavailabl e Reason for Referral * Emergency Services (Routine) - Authorized Specialty Diagnoses / Procedures Referred By Kumar leroy Referred To Contact Emergency Medicine Diagnoses Tremor of both hands Dahlia Moyer APRN [address] [place] [address] [facility] [place] [address] Referral ID Status Reason Start Date Expiration Date V isits Requested Visits Authorized [id number] Authorized Consult 07/08/2024 07/09/2025 1 1 Question Answer Was this patient transferred from Urgent Care to the ED? Yes Decision Making Capacity? Yes Receiving Facility? Other (comment) - [facility] Reason for Transfer Needs higher level of care Does the patient require an ambulance? No Method of Transport? Did you attempt to contact the receiving facility? Yes Comments Fatigue and chills x 2 days, new onset of bilateral upper extremity tremors since today Reason for Visit * Reason Comments Chills Chills, fatigue x 2 days. Encounter Details Date Type Department Care Team (Late st Contact Info) Description 07/08/2024 3:30 PM EST Office Visit [facility] [address] [phone] José Luis Salcedo MD [address] [place] [address] Dahlia Moyer APRN [address] [place] [address] Tremor of both hands (Primary Dx); Chills; Encounter for screening laboratory testing for COVID-19 virus Social History Tobacco Use Types Packs/Day Years Used Date Smoking Tobacco: Never Smokeless Tobacco: Never Tobacco Cessation:Counseling Given: Not Answered Alcohol Use Standard Drinks/Week Comments Yes 0 (1 standard drink = 0.6 oz pur e alcohol) Sex and Gender Information Value Date Recorded Sex Assigned at Not on file Gender Identity Not on file Sexual Orientation Not on file documented as of this encounter Last Filed Vital Signs Vital Sign Reading Time Taken Comments Blood Pressure 151/89 07/08/2024 3:36 PM EST Pulse 98 07/08/2024 3:36 PM EST Temperature 36.8 ??C (98.2 ??F) 07/08/2024 3:36 PM ES T Respiratory Rate 16 07/08/2024 3:36 PM EST Oxygen Saturation 95% 07/08/2024 3:36 PM EST Inhaled Oxygen Concentration - - Weight 81.6 kg (180 lb) 07/08/2024 3:36 PM EST Height 190.5 cm (6' 3 ) 07/08/2024 3:36 PM EST Body Mass Index 22.5 07/08/2024 3:36 PM EST documented in this encounter Progress Notes * Dahlia Taqueria Moyer, FINISHING TUNNEL OPERATOR - 07/08/2024 4:15 PM EST Assessment & Plan Felipe was seen today for chills. Diagnoses and all orders for this visit: Tremor of both hands - Amb Referral to Emergency Medicine Chills - POCT Rapid Influenza - POCT Glucose, Fingerstick Encounter for screening laboratory testing for COVID-19 virus - POCT Rapid COVID-19 Antigen (FDA EUA) Medical Decision Making and Data Synthesis: Pt NAD. VSS. LCTAB. HRRR. Covid, flu ordered, neg. Results of tests were reviewed with the patient.POC glucose 161. ddx including but not limited to: benign essential tremor, medication induced tremor, dystonic tremor, cerebral disease, MS, hypothyroidism, anxiety, psychogenic tremor, DTs, TIA, CVA, tumor/cancer Given acute onset of b/l UE tremor, age, hx - advised patient he needs further work up in the ER. Patient in agreement with plan and is willing to go to [facility]. Significant other to drive patient to ER. Expect called. Patient in agreement with plan. Answered all questions. Communication barriers and lifestyle preferences were addressed with the patient and/or family . The care plan including medications and self-management goals/symptomatic treatment were reviewed to the best of the patient and/or family's ability. Educated to follow up with PCP for ongoing management. ER with new or worsening symptoms. All questions and concerns were answered. Patient and/or family verbalized understanding of the plan of care. Subjective Felipe Li is a 59 y.o. male HPI Presents for fatigue and chills x2 days, with new onset b/l UE/hand tremor today. PMH ETOH abuse. Denies ETOH or substance use. FHx parkinsons disease. No otc meds. Denies any other systemic symptoms. Denies fever, ST, ear pain, rhinorrhea, cp, cough, sob, dyspnea, wheezing, N/V/D, MARISCAL, change in vision, abd px, loss of taste or smell, or sinus pain. Denies any recent illness or ABX use. Other Pertinent History: History reviewed. No pertinent past medical history. History reviewed. No pertinent surgical history. Social History Tobacco Use ??? Smoking status: Never ??? Smokeless tobacco: Never Substance Use Topics ??? Alcohol use: Yes ??? Drug use: Never History reviewed. No pertinent family history. Review of Systems: All other systems reviewed and are negative except where documented below: Cardiovascular: No Chest pain Pulmonary: No SOB, no dyspnea, no wheezing Gastrointestinal: No N/Vomiting; No Diarrhea, no abd px Constitutional: No Fever, chills Objective Vitals: 07/08/24 1536 BP: (!) 151/89 Pulse: 98 Resp: 16 Temp: 98.2 ??F (36.8 ??C) SpO2: 95% Weight: 81.6 kg (180 lb) Height: 1.905 m (6' 3 ) Vital signs reviewed. Constitutional: Well-appearing, in no apparent respiratory distress. Does not appear toxic Eyes: Conjunctivae Clear, No Icterus. PERRLA b/l. EOMI b/l. Ear, Nose, Mouth, Throat: Grossly normal inspection. Normal voice, handling secretions normally. Tonsils normal. Uvula midline. Neck: Supple, no nuchal signs, No cervical lymphadenopathy. No JVD. Cardiovascular: Regular rate and rhythm. Normal S1, S2. No extra heart sounds. Respiratory: Breath sounds clear and equal bilaterally, no wheezes, rales, or rhonchi. Gastrointestinal: Soft and No tenderness. Nondistended. Nontender to palpation in all 4 quadrants, epigastric, umbilical and suprapubic areas. No pulsatile masses or bulging. Negative Schultz sign, Rovsing sign, nontender McBurney's point. Back: No CVAT Musculoskeletal: No extremity tenderness, no peripheral edema. Skin: Normal for age and race, grossly normal temperature and turgor. No acute rash. Neurologic: Visible tremor of bilateral hands/upper extremities. Alert and appropriate, no apparentacute deficits. Equal strength in all four extremities. Normal gait. CN 2-12 grossly intact. Psychiatric: Mood and manner are appropriate. Grooming and personal hygiene are appropriate. Hematologic: No significant bruising, petechia, or purpura. Lymphatic: No significant lymphadenopathy Results for orders placed or performed in visit on 07/08/24 POCT Rapid Influenza Collection Time: 07/08/24 3:52 PM Result Value Ref Range Inflenza A Ag Negative Negative Influenza B Ag Negative Negative POCT Glucose, Fingerstick Collection Time: 07/08/24 3:53 PM Result Value Ref Range POC Glucose 161 MG/DL Lot Number [id number] [employer] Pass POCT Rapid COVID-19 Antigen (FDA EUA) Collection Time: 07/08/24 3:54 PM Result Value Ref Range COVID-19 Rapid Antigen, POC (FDA EUA) Negative Result Comments: A Positive Result does not rule outbacterial infection or co-infection with other viruses. Clinical correlation advised. A Negative Result in symptomatic patients should be considered presumptive and needs confirmation by PCR. Kit Lot Number [id number] [employer] Pass 07/08/24 5:30 PM Dahlia Moyer PA-C documented in this encounter Plan of Treatment Scheduled Referrals Name Type Priority Associated Diagnoses Orde r Schedule Amb Referral to Emergency Medicine Outpatient Referral Routine Tremor of both hands Ordered: 07/08/2024 documented as of this encounter Procedures Procedure Name Priority Date/Time Associated Diagnosis Comments POCT RAPID COVID-19 AG (FDA EUA) Routine 07/08/2024 3:54 PM EST Encounter for screening laboratory testing for COVID-19 virus POCT GLUCOSE, FINGERSTICK (CHARGE) Routine 07/08/2024 3:53 PM EST Chills POCT RAPID INFLUENZA Routine 07/08/2024 3:52 PM EST Chills documented in this encounter Results * POCT Rapid COVID-19 Antigen (FDA EUA) (07/08/2024 3:54 PM EST) COVID-19 Rapid Antigen, POC (FDA EUA) Negative Result Comments: A Positive Result does not rule out bacterial infection or co-infection with other viruses. Clinical correlation advised. A Negative Result in symptomatic patients should be considered presumptive and needs confirmation by PCR. Kit Lot Number [id number] [employer] Pass Swab, Nasal Specimen from nose / Unknown 07/08/2024 3:54 PM EST Dahlia Moyer APRN POINT OF CARE TEST ORDERABLES * POCT Glucose, Fingerstick (07/08/2024 3:53 PM EST) POC Glucose 161 MG/DL Lot Number [id number] [employer] Blood 07/08/2024 3:53 PM EST Dahlia Moyer FINISHING TUNNEL OPERATOR POINT OF CARE TEST ORDERABLES * POCT Rapid Influenza (07/08/2024 3:52 PM EST) Inflenza A Ag Negative Negative Influenza B Ag Negative Negative Nasopharyngeal 07/08/2024 3: 52 PM EST Dahlia Moyer FINISHING TUNNEL OPERATOR POINT OF CARE TEST ORDERABLES documented in this encounter Visit Diagnoses Diagnosis Tremor of both hands- Primary Chills Chills (without fever) Encounter for screening laboratory testing for COVID-19 virus documented in this encounter Care Teams Spare Hand Relationship Specialty Start Date End Date Pcp, No PCP - General General Medicine 08/02/22 documented as of this encounter
--- OUTSIDE RECORDS SUMMARY | 2024-08-05 09:10 | XMS_ITS | Encounter Summary ---
Author Organization [facility] Address [address] [place] [address] Care Team Providers Care Insulation Blower Name Role Phone Pcp, No Primary Care Provider Unavailabl e Encounter Details Date Type Department Care Team (Late st Contact Info) Description 08/02/2022 11:29 AM EST Hospital Encounter [facility] [address] [place] [phone] José Luis Salcedo MD [address] [place] [address] Social History Tobacco Use Types Packs/Day Years [...] IMPRESSION: Cardiomegaly. Lungs are clear. Francoise Carmen APRN IMG DIAGNOSTIC IMAGI NG ORDERABLES documented in this encounter Visit Diagnoses Not on filedocumented in this encounter Care Teams Insulation Blower Relationship Specialty Start Date End Date Pcp, No PCP - General General Medicine 08/02/22 documented as of this encounter
--- OUTSIDE RECORDS SUMMARY | 2024-08-05 09:10 | XMS_ITS ---
Author Name [facility] Organization Unknown Results Test Name/Text Value Interpretation Date Range Source RBC DISTRIBUTION WIDTH 12.3% Normal [id number] 11.6 - 14.8 [facility] AUTO NRBC % 0% Normal [id number] 0 - [address] [facility] [address] 3.710*3/uL Normal [id number] 1.4 - 6.[address] [facility] [address] 0.910*3/uL Above high normal [id number] 0.2 - 0.8 [facility] MCHC 33.3g/dL Normal [id number] 32 - 36 [facility] MCH 32.2pg Normal [id number] 26 - 34 [facility] IMMATURE GRANULOCYTE % 0.2% Normal [id number] 0 - 0.6 [facility] EOSINOPHIL % 0.2% Normal [id number] 0 - 6 [facility] [address] 010*3/uL Normal [id number] 0 - 0. 2 [facility] MCV 96.7fL Normal [id number] 80 - 100 [facility] PLATELET COUNT 39586*3/uL Normal [id number] 150 - 440 C [facility] BASOPHILS % 0.6% Normal [id number] 0 - [address] [facility] [address] 0.510*3/uL Below low normal [id number] 0.7 - 4.[address] [facility] [address] 010*3/uL Normal [id number] 0 - 0.3 [facility] HEMATOCRIT 46.5% Normal [id number] 40 - 52 [facility] WHITE CELL COUNT 5.210*3/uL Normal [id number] 3.8 - 10. 6 [facility] RED CELL COUNT 4.8110*6/???L Normal [id number] 4.4 - 5. 9 [facility] MONOCYTE % 16.9% Above high normal [id number] 4 - 12 [facility] NEUTROPHIL % 71.7% Above high normal [id number] 40 - 7 0 [facility] HEMOGLOBIN 15.5g/dL Normal [id number] 13 - 18 [facility] LYMPHOCYTE % 10.4% Below low normal 20 - 50 [facility] LACTIC ACID 0.8mmol/L Normal 0.5 - 1.9 [facility] ALT (SGPT) 101U/L Above high normal 8 - 39 [facility] PROTEIN TOTAL 8.1g/dL Normal 6.2 - 8.1 [facility] AST (SGOT) 100U/L Above high normal 17 - 35 [facility] BILIRUBIN, TOTAL 0.8mg/dL Normal 0.1 - 1.2 [facility] ALKALINE PHOSPHATASE 106U/L Normal 39 - 1 13 [facility] BILIRUBIN, DIRECT 0.4mg/dL Normal 0 - 0.5 [facility] ALBUMIN, AUTOMATED 4.7g/dL Normal 3.8 - 5. 3 [facility] CREATININE 0.8mg/dL Normal 0.6 - 1.2 [facility] POTASSIUM 4.8mmol/L Normal 3.6 - 5.1 [facility] BICARBONATE 28mmol/L Normal 23 - 32 [facility] GLOMERULAR FILTRATION RATE ML/MIN/1.73 SQ M.PREDICTED 101mL/min/1.73m *2 Normal 60 - [facility] SODIUM 139mmol/L Normal 137 - 144 [facility] CHLORIDE 100mmol/L Normal 100 - 111 [facility] CALCIUM, TOTAL 10.6mg/dL Above high normal 8.4 - 10.2 [facility] UREA NITROGEN 14mg/dL Normal 8 - 24 [facility] ANION GAP 11mmol/L Normal 3 - 11 [facility] GLUCOSE 93mg/dL Normal 70 - 200 [facility] INFLUENZA B PCR (CEPHEID) Not Detected Normal [facility] INFLUENZA A PCR (CEPHEID) Not Detected Normal [facility] RSV PCR (CEPHEID) Not Detected Normal [facility] SARS-COV-2 PCR (CEPHEID) Negative Normal [id number] [facility] POCT GLUCOSE 87mg/dL Normal [id number] 70 - 200 [facility] History of Medication Use Medication Directions Dispensed Refills Start Date End Date Stat fluticasone (FloVENT HFA) 44 mcg/puff inhaler Inhale 1 puff 2 (two) times a day. 08/02/2022 active ascorbic acid (VITAMIN C) 250 MG tablet Take 250 mg by mouth daily. active metoPROLOL SUCCINATE (TOPROL-XL) 25 MG 24 hr tablet Take 25 mg by mouth 2 times a day. active benzonatate (TESSALON) 200 MG capsule Take 1 capsule (200 mg total) by mouth 3 (three) times a day as needed for cough. 08/02/2022 active Cyanocobalamin (VITAMIN B 12 PO) Take 1 tablet by mouth. 05/02/2022 active PANTOprazole (PROTONIX) 40 MG EC tablet Take 40 mg by mouth. 05/02/2022 active doxycycline (MONODOX) 100 MG capsule Take 1 capsule (100 mg total) by mouth 2 (two) times a day. 08/02/2022 08/10/2022 active Problems Problem Status Onset Date Problem Type Date of Resoluti on Source Ganglion of tendon sheath active 2022-08-02 ProblemAct [facility] Cardiomegaly active 2022-08-02 ProblemAct [facility] Hiatal hernia active 2022-08-02 ProblemAct [facility] Pulmonary HTN active 2022-08-02 ProblemAct [facility] Alcohol abuse active 2022-08-02 ProblemAct [facility] Neuropathy active 2021-08-12 ProblemAct [facility] Lower esophageal ring active 2022-08-02 ProblemAct [facility] Disease due to severe acute respiratory syndrome coronavirus 2 (SARS-CoV-2) active 2022-07-01 ProblemAct [facility] Essential hypertension active 2021-08-12 ProblemAct [facility] Polyp of colon active 2022-08-02 ProblemAct [facility] Thoracic aortic aneurysm without rupture active 2022-08-02 ProblemAct [facility] History of septic shock active 2022-08-02 ProblemAct [facility] Allergy to pollen active 2022-08-02 ProblemAct [facility] Chills active EncounterDiagnosisAct [facility] Lumbar pain with radiation down right leg active 2022-08-02 ProblemAct [facility] Tremor of both hands active EncounterDiagnosisA ct [facility] History of acute respiratory failure active 2022-08-02 ProblemAct [facility] Encounter for screening laboratory testing for COVID-19 virus active EncounterDiagnosisAct [facility] 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
--- OUTSIDE RECORDS SUMMARY | 2024-08-05 09:10 | XMS_ITS | Clinical Summary ---
Author Organization Formerly [facility] Address [address] [place] [address] Care Team Providers Care Blind Cleaner Name Role Phone Pcp, No Primary Care Provider Unavailabl e Allergies Active Allergy Reactions Criticality Noted Date Comments Bee Venom Anaphylaxis High 08/02/2022 Lisinopril Cough Low 08/02/2022 Medications Medication Sig Dispensed Refills Start Date End Date Status AMLODIPINE BENZOATE PO amlodipine Active DULOXETINE HCL PO duloxetine Active Echinacea 650 MG Cap Take 650 mg by mouth. 05/02/2022 Active Cyanocobalamin (VITAMIN B 12 PO) Take 1 tablet by mouth. 05/02/2022 Active vitamin E 100 UNIT capsule Take by mouth. 09/23/2021 Active amLODIPine (NORVASC) 10 MG tablet Take 10 mg by mouth. 01/17/2022 Active PANTOprazole (PROTONIX) 40 MG EC tablet Take 40 mg by mouth. 05/02/2022 Active Potassium Gluconate 550 MG Tab Take 550 mg by mouth. 05/02/2022 Active doxycycline (MONODOX) 100 MG capsuleIndications: Walking pneumonia Take 1 capsule (100 mg total) by mouth 2 (two) times a day. 14 capsule 08/02/2022 Active benzonatate (TESSALON) 200 MG capsuleIndications: Post-viral cough syndrome,Walking pneumonia Take 1 capsule (200 mg total) by mouth 3 (three) times a day as needed for cough. 20 capsule 08/02/2022 Active fluticasone (FloVENT HFA) 44 mcg/puff inhalerIndications: Post-viral cough syndrome Inhale 1 puff 2 (two) times a day. 10.6 g 08/02/2022 Active metoPROLOL SUCCINATE (TOPROL-XL) 25 MG 24 hr tablet Take 25 mg by mouth 2 times a day. Active ascorbic acid (VITAMIN C) 250 MG tablet Take 250 mg by mouth daily. 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 Ganglion of tendon sheath 08/02/2022 Hiatal hernia 08/02/2022 History of acute respiratory failure 08/02/2022 History of septic shock 08/02/2022 Lower esophageal ring 08/02/2022 Lumbar pain with radiation down right leg 2022 Polyp of colon 08/02/2022 Pulmonary HTN 08/02/2022 Thoracic aortic aneurysm without rupture 023 Disease due to severe acute respiratory syndrome coronavirus 2 (SARS-CoV-2) 07/01/2022 Overview (08/02/2022): Problem added by Discern Expert Essential hypertension 08/12/2021 Neuropathy 08/12/2021 Encounters Date Type Department Care Team Description 07/08/2024 3:30 PM EST Office Visit [facility] [address] [phone] José Luis Salcedo MD Liquori, Angela M, KRISTA Tremor of both hands (Primary Dx); Chills; Encounter for screening laboratory testing for COVID-19 virus 07/08/2024 Travel from Last 3 Months Social History Tobacco Use Types Packs/Day Years Used Date Smoking Tobacco: Never Smokeless Tobacco: Never Tobacco Cessation:Counseling Given: Not Answered Alcohol Use Standard Drinks/Week Comments Yes 0 (1 standard drink = 0.6 oz pur e alcohol) Sex and Gender Information Value Date Recorded Sex Assigned at Not on file Gender Identity Not on file Sexual Orientation Not on file Last Filed Vital Signs Vital Sign Reading [...] Mass Index 22.5 07/08/2024 3:36 PM EST Plan of Treatment Health Maintenance Due Date Last Done Comments Hepatitis C Virus Screening 1964 HIV Screening 1977 DTaP/Tdap/Td Vaccines (1 - Tdap) 1983 Pneumococcal Vaccines 50+ (1 of 2 - PCV) 1983 Colonoscopy 2009 Zoster (Shingles) Vaccine (1 of 2) 2014 Influenza Vaccine 12/27/2023 05/11/2022, , 03/15/2020, Additional history exists COVID-19 Vaccine ( - 2023- season) 2024 RSV Vaccine 60 years and older and Patients (1 - 1-dose 75+ series) 2039 Hepatitis B Vaccines Aged Out No long er eligible based on patient's age to complete this topic Procedures Procedure Name Priority Date/Time Associated Diagnosis Comments POCT RAPID COVID-19 AG (FDA EUA) Routine 07/08/2024 3:54 PM EST Encounter for screening laboratory testing for COVID-19 virus POCT GLUCOSE, FINGERSTICK (CHARGE) Routine 07/08/2024 3:53 PM EST Chills POCT RAPID INFLUENZA Routine 07/08/2024 3:52 PM EST Chills from Last 3 Months Results * POCT Rapid COVID-19 Antigen (FDA EUA) (07/08/2024 3:54 PM EST) COVID-19 Rapid Antigen, POC (FDA EUA) Negative Result Comments: A Positive Result does not rule out bacterial infection or co-infection with other viruses. Clinical correlation advised. A Negative Result in symptomatic patients should be considered presumptive and needs confirmation by PCR. Kit Lot Number [id number] Tow Operator Pass Pass Swab, Nasal Specimen from nose / Unknown 07/08/2024 3:54 PM EST Dahlia Moyer APRN POINT OF CARE TEST ORDERABLES * POCT Glucose, Fingerstick (07/08/2024 3:53 PM EST) POC Glucose 161 MG/DL Lot Number [id number] Tow Operator Pass Pass Blood 07/08/2024 3:53 PM EST Dahlia Moyer APRN POINT OF CARE TEST ORDERABLES * POCT Rapid Influenza (07/08/2024 3:52 PM EST) Inflenza A Ag Negative Negative Influenza B Ag Negative Negative Nasopharyngeal 07/08/2024 3: 52 PM EST Dahlia Moyer APRN POINT OF CARE TEST ORDERABLES from Last 3 Months Care Teams Blind Cleaner Relationship Specialty Start Date End Date Pcp, No PCP - General General Medicine 08/02/22
--- OUTSIDE RECORDS SUMMARY | 2024-08-05 09:10 | XMS_ITS | Encounter Summary ---
Author Organization [facility] Address [address] [place] [address] Care Team Providers Care Contract Negotiation Manager Name Role Phone Pcp, No Primary Care Provider Unavailabl e Encounter Details Date Type Department Care Team (Latest Contact Info) Description 07/08/2024 Travel Social History Tobacco Use Types Packs/Day Years Used Date Smoking Tobacco: Never Smokeless Tobacco: Never Alcohol Use Standard Drinks/Week Comments Yes 0 (1 standard drink = 0.6 oz pur e alcohol) Sex and Gender Information Value Date Recorded Sex Assigned at Not on file Gender Identity Not on file Sexual Orientation Not on file documented as of this encounter Plan of Treatment Not on file documented as of this encounter Visit Diagnoses Not on filedocumented in this encounter Care Teams Contract Negotiation Manager Relationship Specialty Start Date End Date Pcp, No PCP - General General Medicine 08/02/22 documented as of this encounter
== END 2024-08-05 09:13 | disposition home or self-care (01) ==
LOC: HO.HMCFM 08:27
PROVIDERS: PCP Internal Medicine; Visit Provider Internal Medicine
DX: Z00.00 Encounter for general adult medical examination without abnormal findings (principal); I10 Essential (primary) hypertension; I71.20 Thoracic aortic aneurysm, without rupture, unspecified

== ENCOUNTER → 2024-08-05 08:27 | Outpatient (BNVA) | payer OTHER, SELFPAY | PROVIDERS: PCP Internal Medicine; Visit Provider Internal Medicine | DX: Z00.00 Encounter for general adult medical examination without abnormal findings (principal); I10 Essential (primary) hypertension; I71.20 Thoracic aortic aneurysm, without rupture, unspecified | CPT/HCPCS: 96127 ==

== ENCOUNTER 2024-08-05 09:38 | Outpatient (REF) | payer OTHER, SELFPAY ==
--- OUTSIDE RECORDS SUMMARY | 2024-08-05 10:53 | XMS_ITS | Encounter Summary ---
Author Organization [facility] Address [address] [place] [address] Care Team Providers Care Data Lead Name Role Phone Fouzia Darling MD Primary Care Provider [phone] Reason for Visit * Reason Comments Shaking Weakness - Generalized Encounter Details Date Type Department Care Team (Late st Contact Info) Description 07/08/2024 6:24 PM EST - 07/08/2024 9:58 PM EST Emergency [facility] Department of Emergency Services [address] [place] [address] Dat Muro MD [address] [place] [address] [phone] Alcohol withdrawal syndrome without complication (HCC) (Primary [...] as well CALL for help stopping drinking [facility] has established the 18/12 Access Line to facilitate access to treatment for substance use disorders. Individuals from anywhere in [place] may call to help with linkage to residential detox. The Access Line is able to prioritize transportation services for detox. The Access Line may also be able arrange transportation to [facility] addiction residential treatment (although transportation services are prioritized for detox). Get In Touch Call [phone] Go to website [email or web address].[email or web address]/ Return immediately for seizure or severe shaking or any hallucinations or confusion or any new or concerning symptoms * Attachments The following attachments cannot be sent through Care Everywhere. * Alcohol Withdrawal Syndrome [id number] (Finnish) * Finding Treatment for Addiction (Finnish) documented in this encounter Medications at Time [...] Course as of 07/09/24227 Dat Muro's Documentation [facility] Jul 08, [id number] Reevaluate Patient is feeling [...] the personnel come to see him from [facility], however he prefers to go home and to call them tomorrow. I agree very small prescription for Ativan, I discussed with him and he actually says to me that he is aware that mixing this with alcohol can cause him to stop breathing . I will discharge him home with small Rx and he will call [facility] tomorrow and follow up PCP Clinical Impressions [...] (Cepheid) Negative Negative 07/08/2024 10:16 PM EST [facility] Influenza A PCR (Cepheid) Not Detected Not Detected 07/08/2024 10:16 PM EST [facility] Influenza B PCR (Cepheid) Not Detected Not Detected 07/08/2024 10:16 PM EST [facility] RSV PCR (Cepheid) Not Detected Not Detected 07/08/2024 10:16 PM EST [facility] Swab Nasopharyngeal structure / Unknown Non-blood Collection / Unknown 07/08/2024 7:38 PM EST 07/08/2024 7:51 PM EST Narrative [facility] - 07/08/2024 10:16 PM EST The Tutor Assignment Flu A/B/RSV/SARS CoV-2 assay performed on the GMEX System is a multiplex real-time RT-PCR intended for the qualitative detection and differentiation of influenza A, influenza B, RSV, and SARS CoV-2 RNA in nasopharyngeal or anterior nasal swab specimens from patients exhibiting signs/symptoms of respiratory viral illness. ??The test is FDA-cleared, and its performance was verified by [facility]. ?? A negative/not detected result does not exclude viral infection and should not be used as the sole basis for treatment or patient management decisions. ?? Results must be considered in the context of clinical observations, patient history, and epidemiological information. us Dat Muro MD LAB MICRO - GENERAL ORDERABLES NO STAT Final Result [facility] [address] [place] [address], * (ABNORMAL) Complete Blood Count with Auto Differential (07/08/2024 7:38 PM EST) White Cell Count 5.2 3.8 - 10.6 10*3/uL 07/08/2024 8:00 PM EST [facility] Red Cell Count 4.81 4.40 - 5.90 10*6/??L 07/08/2024 8:00 PM EST [facility] Hemoglobin 15.5 13.0 - 18.0 g/dL 07/08/2024 8:00 PM EST [facility] Hematocrit 46.5 40.0 - 52.0 % 07/08/2024 8:00 PM EST [facility] MCV 96.7 80.0 - 100.0 fL 07/08/2024 8:00 PM [facility] MCH 32.2 26.0 - 34.0 pg 07/08/2024 8:00 PM [facility] MCHC 33.3 32.0 - 36.0 g/dL 07/08/2024 8:00 PM [facility] RBC Distribution Width 12.3 11.6 - 14.8 % 07/08/2024 8:00 PM [facility] Platelet count 160 150 - 440 10*3/uL 07/08/2024 8:00 PM [facility] Neutrophils 71.7(H) 40.0 - 70.0 % 07/08/2024 8:00 PM [facility] Immature Granulocytes 0.2 0.0 - 0.6 % 07/08/2024 8:00 PM [facility] Lymphocytes 10.4(L) 20.0 - 50.0 % 07/08/2024 8:00 PM [facility] Monocytes 16.9(H) 4.0 - 12.0 % 07/08/2024 8:00 PM [facility] Eosinophils 0.2 0.0 - 6.0 % 07/08/2024 8:00 PM [facility] Basophils 0.6 0.0 - 2.0 % 07/08/2024 8:00 PM [facility] Absolute Neutrophil Ct. 3.7 1.4 - 6.3 10*3/uL 07/08/2024 8:00 PM [facility] Absolute Lymphocyte Ct. 0.5(L) 0.7 - 4.5 10*3/uL 07/08/2024 8:00 PM [facility] Absolute Monocyte Ct. 0.9(H) 0.2 - 0.8 10*3/uL 07/08/2024 8:00 PM [facility] Absolute Eosinophil Ct. 0.0 0.0 - 0.3 10*3/uL 07/08/2024 8:00 PM EST [facility] Absolute Basophil Ct. 0.0 0.0 - 0.2 10*3/uL 07/08/2024 8:00 PM EST [facility] nRBC 0.0 0.0 - 0.0 % 07/08/2024 8:00 PM EST [facility] Blood Venous blood specimen / Unknown Venipuncture / Unknown 07/08/2024 7:38 PM EST 07/08/2024 7:54 PM EST Dat Muro MD LAB BLOOD ORDERABLES Final Res ult [facility] [address] [place] [address], [place] [phone] * Lactic acid, plasma (07/08/2024 7:38 PM EST) Lactic Acid 0.8 0.5 - 1.9 mmol/L 07/08/2024 8:20 PM EST [facility] Blood Venous blood specimen / Unknown Venipuncture / Unknown 07/08/2024 7:38 PM EST 07/08/2024 7:55 PM EST Dat Muro MD LAB BLOOD ORDERABLES Final Res ult [facility] [address] [place] [address], [place] [phone] * (ABNORMAL) Hepatic function panel (07/08/2024 7:38 PM EST) Total Bilirubin 0.8 0.1 - 1.2 mg/dL 07/08/2024 8:22 PM EST [facility] Bilirubin, Direct 0.4 0.0 - 0.5 mg/dL 07/08/2024 8:22 PM EST [facility] Alkaline Phosphatase 106 39 - 113 U/L 07/08/2024 8:22 PM EST [facility] AST 100(H) 17 - 35 U/L 07/08/2024 8:22 PM EST [facility] ALT (SGPT) 101(H) 8 - 39 U/L 07/08/2024 8:22 PM EST [facility] Albumin 4.7 3.8 - 5.3 g/dL 07/08/2024 8:22 PM EST [facility] Total Protein 8.1 6.2 - 8.1 g/dL 07/08/2024 8:22 PM EST [facility] Blood Venous blood specimen / Unknown Venipuncture / Unknown 07/08/2024 7:38 PM EST 07/08/2024 7:55 PM EST us Dat Muro MD LAB BLOOD ORDERABLES Final Res ult [facility] [address] [place] [address], [place] [phone] * (ABNORMAL) Basic metabolic panel (07/08/2024 7:38 PM EST) Sodium 139 137 - 144 mmol/L 07/08/2024 8:22 PM EST [facility] Potassium 4.8 3.6 - 5.1 mmol/L 07/08/2024 8:22 PM EST [facility] Chloride 100 100 - 111 mmol/L 07/08/2024 8:22 PM EST [facility] CO2 28 23 - 32 mmol/L 07/08/2024 8:22 PM EST [facility] Anion gap 11 3 - 11 mmol/L 07/08/2024 8:22 PM EST [facility] BUN 14 8 - 24 mg/dL 07/08/2024 8:22 PM EST [facility] Creatinine 0.80 0.60 - 1.20 mg/dL 07/08/2024 8:22 PM [facility] Glucose 93 70 - 200 mg/dL 07/08/2024 8:22 PM [facility] Comment: Normal fasting glucose ?75-99 [...] 8.4 - 10.2 mg/dL 07/08/2024 8:22 PM [facility] eGFR 101 >60 mL/min/1. 73m*2 07/08/2024 8:22 PM [facility] Comment: Calculation based on the [...] ? 75 ml/min/1.73 m2 ? Pursuant to [place] Public Act 06-120(1)(b)(1). ?? The 2020 CKD-EPI calculation used to estimate eGFR has only been validated for patients 18 years or older. Blood Venous blood specimen / Unknown Venipuncture / Unknown 07/08/2024 7:38 PM EST 07/08/2024 7:55 PM EST us Dat Muro MD LAB BLOOD ORDERABLES Final Res ult Performing Organization Address [facility]/State/[facility] Co de Phone Number [facility] [address] [place] [address], * POCT Glucose, meter (07/08/2024 5:30 PM EST) POCT Glucose 87 70 - 200 mg/dL 07/08/2024 5:31 PM EST [facility] Blood 07/08/2024 5:30 PM EST 07/08/2024 5:31 PM EST Narrative [facility] - 07/08/2024 5:31 PM EST The lower limit of serum glucose reference interval changes from 75 mg/dL to 70 mg/dL on 12/28/2021 to comply with [place] [employer] (ADA)guidelines. Point of Care Device. ??Please refer to collection date and time. us Default Authenticator Interface LAB POCT ORDERAB LES - DEVICE Final Result [facility] [address] [place] [address], [place] [phone] documented in this encounter Visit Diagnoses Diagnosis [...] documented as of this encounter Care Teams Data Lead Relationship Specialty Start Date End Date Fouzia Darling MD [address] [place] [phone] PCP - General Internal Medicine 07/08/24 documented as of this encounter
--- OUTSIDE RECORDS SUMMARY | 2024-08-05 10:53 | XMS_ITS | Encounter Summary ---
Author Organization [facility] Address [address] [place] [address] Care Team Providers Care Mobile Manager Name Role Phone Pcp, No Primary Care Provider Unavailabl e Encounter Details Date Type Department Care Team (Late st Contact Info) Description 08/02/2022 11:29 AM EST Hospital Encounter [facility] [address] [place] [phone] José Luis Salcedo MD [address] [place] [address] Social History Tobacco Use Types [...] on filedocumented in this encounter Care Teams Mobile Manager Relationship Specialty Start Date End Date Pcp, No PCP - General General Medicine 08/02/22 documented as of this encounter
--- OUTSIDE RECORDS SUMMARY | 2024-08-05 10:53 | XMS_ITS | Clinical Summary ---
Author Organization [facility] Address [address] [place] [address] Care Team Providers Care Voice Writing Reporter Name Role Phone Pcp, No Primary Care [...] Description 07/08/2024 3:30 PM EST Office Visit [facility] [address] [phone] José Luis Salcedo MD Liquori, Angela M, [...] needs confirmation by PCR. Kit Lot Number [id number] Research Executive Pass Pass Swab, Nasal Specimen from nose / Unknown 07/08/2024 3:54 PM EST Dahlia Moyer APRN POINT OF CARE TEST ORDERABLES * POCT Glucose, Fingerstick (07/08/2024 3:53 PM EST) POC Glucose 161 MG/DL Lot Number [id number] [employer] Executive Pass Pass Blood 07/08/2024 3:53 PM EST Dahlia Moyer APRN POINT OF CARE TEST ORDERABLES * POCT Rapid Influenza (07/08/2024 3:52 PM EST) Inflenza A Ag Negative Negative Influenza B Ag Negative Negative Nasopharyngeal 07/08/2024 3: 52 PM EST Dahlia Moyer APRN POINT OF CARE TEST ORDERABLES from Last 3 Months Care Teams Voice Writing Reporter Relationship Specialty Start Date End Date Pcp, No PCP - General General Medicine 08/02/22
--- OUTSIDE RECORDS SUMMARY | 2024-08-05 10:53 | XMS_ITS | Encounter Summary ---
Author Organization [facility] Address [address] [place] [address] Care Team Providers Care Glass Installer Name Role Phone Pcp, No Primary Care Provider Unavailabl e Reason for Referral * Emergency Services (Routine) - Authorized Specialty Diagnoses / Procedures Referred By Kumar leroy Referred To Contact Emergency Medicine Diagnoses Tremor of both hands Dahlia Moyer APRN [address] [place] [address] [facility] / [place] [address] Referral ID Status Reason Start Date Expiration Date V isits Requested Visits Authorized [id number] Authorized Consult 07/08/2024 07/09/2025 1 1 Question Answer Was this patient transferred from Urgent Care to the ED? Yes Decision Making Capacity? Yes Receiving Facility? Other (comment) - [facility] Reason for Transfer Needs higher level of [...] Description 07/08/2024 3:30 PM EST Office Visit [facility] [address] [phone] José Luis Salcedo MD [address] [place] [address] Dahlia Moyer APRN [address] [place] [address] Tremor of both hands (Primary Dx); Chills; [...] encounter Progress Notes * Dahlia Taqueria Moyer, BLE[employer] KRA[employer]ULP - 07/08/2024 4:15 PM EST Assessment & [...] plan and is willing to go to [facility]. Significant other to drive patient to ER. [...] Range POC Glucose 161 MG/DL Lot Number [id number] Ship Fitter Pass Pass POCT Rapid COVID-19 Antigen (FDA EUA) Collection Time: 07/08/24 3:54 PM Result Value Ref Range COVID-19 Rapid Antigen, POC (FDA EUA) Negative Result Comments: A Positive Result does not rule outbacterial infection or co-infection with other viruses. Clinical correlation advised. A Negative Result in symptomatic patients should be considered presumptive and needs confirmation by PCR. Kit Lot Number [id number] Ship Fitter Pass Pass 07/08/24 5:30 PM Dahlia Moyer [...] needs confirmation by PCR. Kit Lot Number [id number] Ship Fitter Pass Pass Swab, Nasal Specimen from nose / Unknown 07/08/2024 3:54 PM EST Dahlia Moyer APRN POINT OF CARE TEST ORDERABLES * POCT Glucose, Fingerstick (07/08/2024 3:53 PM EST) POC Glucose 161 MG/DL Lot Number [id number] Ship F[employer] Pass Pass Blood 07/08/2024 3:53 PM EST Dahlia Moyer [employer] POINT OF CARE TEST ORDERABLES * POCT Rapid Influenza (07/08/2024 3:52 PM EST) Inflenza A Ag Negative Negative Influenza B Ag Negative Negative Nasopharyngeal 07/08/2024 3: 52 PM EST Dahlia Moyer [employer] POINT OF CARE TEST ORDERABLES documented in this encounter Visit Diagnoses Diagnosis Tremor of both hands- Primary Chills Chills (without fever) Encounter for screening laboratory testing for COVID-19 virus documented in this encounter Care Teams Glass Installer Relationship Specialty Start Date End Date Pcp, No PCP - General General Medicine 08/02/22 documented as of this encounter
--- OUTSIDE RECORDS SUMMARY | 2024-08-05 10:53 | XMS_ITS | Clinical Summary ---
Author Organization [facility] Address [address] [place] [address] Care Team Providers Care Shellfish Sorter Name Role Phone Fouzia Darling MD Primary Care Provider [phone] Allergies No known active allergies Medications LORazepam (Ativan) 2 mg tablet Take 1 tablet (2 mg total) by mouth every 4 (four) hours as needed for anxiety (shaking) for up to 3 days. 6 tablet 07/08/2024 Active Active Problems No known active problems Encounters Date Type Department Care Team Description 07/08/2024 6:24 PM EST - 07/08/2024 9:58 PM EST Emergency [facility] Department of Emergency Services [address] [place] [address] Dat Muro MD Alcohol withdrawal syndrome without [...] (Cepheid) Negative Negative 07/08/2024 10:16 PM EST [facility] Influenza A PCR (Cepheid) Not Detected Not Detected 07/08/2024 10:16 PM EST [facility] Influenza B PCR (Cepheid) Not Detected Not Detected 07/08/2024 10:16 PM EST [facility] RSV PCR (Cepheid) Not Detected Not Detected 07/08/2024 10:16 PM EST [facility] Swab Nasopharyngeal structure / Unknown Non-blood Collection / Unknown 07/08/2024 7:38 PM EST 07/08/2024 7:51 PM EST [facility] - 07/08/2024 10:16 PM EST The [employer] Coid Flu A/B/RSV/SARS CoV-2 assay performed on the [employer] is a multiplex real-time RT-PCR intended for the qualitative detection and differentiation of influenza A, influenza B, RSV, and SARS CoV-2 RNA in nasopharyngeal or anterior nasal swab specimens from patients exhibiting signs/symptoms of respiratory viral illness. ??The test is FDA-cleared, and its performance was verified by [facility]. ?? A negative/not detected result does not exclude viral infection and should not be used as the sole basis for treatment or patient management decisions. ?? Results must be considered in the context of clinical observations, patient history, and epidemiological information. us Dat Muro MD LAB MICRO - GENERAL ORDERABLES NO STAT Final Result Performing Organization Address City/State/[facility] Co de Phone Number [facility] [address] [place] [address], * (ABNORMAL) Complete Blood Count with Auto Differential (07/08/2024 7:38 PM EST) Pathologist [facility] White Cell Count 5.2 3.8 - 10.6 10*3/uL 07/08/2024 8:00 PM EST [facility] Red Cell Count 4.81 4.40 - 5.90 10*6/??L 07/08/2024 8:00 PM [facility] Hemoglobin 15.5 13.0 - 18.0 g/dL 07/08/2024 8:00 PM [facility] Hematocrit 46.5 40.0 - 52.0 % 07/08/2024 8:00 PM [facility] MCV 96.7 80.0 - 100.0 fL 07/08/2024 8:00 PM [facility] MCH 32.2 26.0 - 34.0 pg 07/08/2024 8:00 PM [facility] MCHC 33.3 32.0 - 36.0 g/dL 07/08/2024 8:00 PM [facility] RBC Distribution Width 12.3 11.6 - 14.8 % 07/08/2024 8:00 PM [facility] Platelet count 160 150 - 440 10*3/uL 07/08/2024 8:00 PM [facility] Neutrophils 71.7(H) 40.0 - 70.0 % 07/08/2024 8:00 PM [facility] Immature Granulocytes 0.2 0.0 - 0.6 % 07/08/2024 8:00 PM [facility] Lymphocytes 10.4(L) 20.0 - 50.0 % 07/08/2024 8:00 PM [facility] Monocytes 16.9(H) 4.0 - 12.0 % 07/08/2024 8:00 PM [facility] Eosinophils 0.2 0.0 - 6.0 % 07/08/2024 8:00 PM [facility] Basophils 0.6 0.0 - 2.0 % 07/08/2024 8:00 PM [facility] Absolute Neutrophil Ct. 3.7 1.4 - 6.3 10*3/uL 07/08/2024 8:00 PM [facility] Absolute Lymphocyte Ct. 0.5(L) 0.7 - 4.5 10*3/uL 07/08/2024 8:00 PM EST [facility] Absolute Monocyte Ct. 0.9(H) 0.2 - 0.8 10*3/uL 07/08/2024 8:00 PM EST [facility] Absolute Eosinophil Ct. 0.0 0.0 - 0.3 10*3/uL 07/08/2024 8:00 PM EST [facility] Absolute Basophil Ct. 0.0 0.0 - 0.2 10*3/uL 07/08/2024 8:00 PM EST [facility] nRBC 0.0 0.0 - 0.0 % 07/08/2024 8:00 PM EST [facility] Blood Venous blood specimen / Unknown Venipuncture / Unknown 07/08/2024 7:38 PM EST 07/08/2024 7:54 PM EST Dat Muro MD LAB BLOOD ORDERABLES Final Res ult [facility] [address] [place] [address], [place] [phone] * Lactic acid, plasma (07/08/2024 7:38 PM EST) Lactic Acid 0.8 0.5 - 1.9 mmol/L 07/08/2024 8:20 PM EST [facility] Blood Venous blood specimen / Unknown Venipuncture / Unknown 07/08/2024 7:38 PM EST 07/08/2024 7:55 PM EST us Dat Muro MD LAB BLOOD ORDERABLES Final Res ult [facility] [address] [place] [address], [place] [phone] * (ABNORMAL) Hepatic function panel (07/08/2024 7:38 PM EST) Total Bilirubin 0.8 0.1 - 1.2 mg/dL 07/08/2024 8:22 PM EST [facility] Bilirubin, Direct 0.4 0.0 - 0.5 mg/dL 07/08/2024 8:22 PM EST [facility] Alkaline Phosphatase 106 39 - 113 U/L 07/08/2024 8:22 PM EST [facility] AST 100(H) 17 - 35 U/L 07/08/2024 8:22 PM EST [facility] ALT (SGPT) 101(H) 8 - 39 U/L 07/08/2024 8:22 PM EST [facility] Albumin 4.7 3.8 - 5.3 g/dL 07/08/2024 8:22 PM EST [facility] Total Protein 8.1 6.2 - 8.1 g/dL 07/08/2024 8:22 PM EST [facility] Blood Venous blood specimen / Unknown Venipuncture / Unknown 07/08/2024 7:38 PM EST 07/08/2024 7:55 PM EST us Dat Muro MD LAB BLOOD ORDERABLES Final Res ult Performing Organization Address City/State/[facility] Co de Phone Number [facility] [address] [place] [address], * (ABNORMAL) Basic metabolic panel (07/08/2024 7:38 PM EST) Pathologist [facility] Sodium 139 137 - 144 mmol/L 07/08/2024 8:22 PM EST [facility] Potassium 4.8 3.6 - 5.1 mmol/L 07/08/2024 8:22 PM EST [facility] Chloride 100 100 - 111 mmol/L 07/08/2024 8:22 PM EST [facility] CO2 28 23 - 32 mmol/L 07/08/2024 8:22 PM [facility] Anion gap 11 3 - 11 mmol/L 07/08/2024 8:22 PM [facility] BUN 14 8 - 24 mg/dL 07/08/2024 8:22 PM [facility] Creatinine 0.80 0.60 - 1.20 mg/dL 07/08/2024 8:22 PM [facility] Glucose 93 70 - 200 mg/dL 07/08/2024 8:22 PM [facility] Comment: Normal fasting glucose ?75-99 [...] 8.4 - 10.2 mg/dL 07/08/2024 8:22 PM [facility] eGFR 101 >60 mL/min/1. 73m*2 07/08/2024 8:22 PM [facility] Comment: Calculation based on the [...] ? 75 ml/min/1.73 m2 ? Pursuant to [place] Public Act 06-120(1)(b)(1). ?? The 2020 CKD-EPI calculation used to estimate eGFR has only been validated for patients 18 years or older. Blood Venous blood specimen / Unknown Venipuncture / Unknown 07/08/2024 7:38 PM EST 07/08/2024 7:55 PM EST us Dat Muro MD LAB BLOOD ORDERABLES Final Res ult [facility] [address] [place] [address], * POCT Glucose, meter (07/08/2024 5:30 PM EST) POCT Glucose 87 70 - 200 mg/dL 07/08/2024 5:31 PM EST [facility] Blood 07/08/2024 5:30 PM EST 07/08/2024 5:31 PM EST Narrative [facility] - 07/08/2024 5:31 PM EST The lower limit of serum glucose reference interval changes from 75 mg/dL to 70 mg/dL on 12/28/2021 to comply with [place] Diabetes Association (ADA)guidelines. Point of Care Device. ??Please refer to collection date and time. us Default Authenticator Interface LAB POCT ORDERAB LES - DEVICE Final Result [facility] [address] [place] [address], from Last 3 Months Insurance [facility] OPEN ACCESS Care Teams Shellfish Sorter Relationship Specialty Start Date End Date Fouzia Darling MD [address] [place] [phone] PCP - General Internal Medicine 07/08/24
--- OUTSIDE RECORDS SUMMARY | 2024-08-05 10:53 | XMS_ITS | Encounter Summary ---
Author Organization [facility] Address [address] [place] [address] Care Team Providers Care Falafel Cart Cook Name Role Phone Pcp, No Primary Care [...] on filedocumented in this encounter Care Teams Falafel Cart Cook Relationship Specialty Start Date End Date Pcp, No PCP - General General Medicine 08/02/22 documented as of this encounter
[2024-08-05 11:42] LABS: MANUAL DIFF FLAG NO
[2024-08-05 11:49] LABS: Basophils Absolute Auto 0.1 X10*3/uL (0.0-0.2); Basophils Percent Auto 1.1 % (0-2); Eosinophils Absolute Auto 0.2 X10*3/uL (0.0-0.4); Eosinophils Percent Auto 2.7 % (0-4); Hematocrit 45.6 % (42.0-52.0); Hemoglobin 15.3 g/dl (14.0-18.0); Imm Gran Abs Auto 0.03 X10*3/uL (0.00-0.03); Imm Gran Pct Auto 0.5 % (0.0-0.4); Lymphocytes Absolute Auto 0.8 X10*3/uL (1.2-4.9); Lymphocytes Percent Auto 13.5 % (20-40); Mean Corpuscular HGB Conc 33.6 g/dl (31.0-36.0); Mean Corpuscular Hemoglobin 31.9 pg (27.0-33.0); Mean Corpuscular Volume 95.2 fL (80.0-98.0); Mean Platelet Volume 9.7 fL (9.4-12.4); Monocytes Absolute Auto 0.9 X10*3/uL (0.1-1.2); Neutrophils Absolute Auto 4.2 x10*3/uL (2.0-8.3); Neutrophils Percent Auto 68.2 % (45-73); Platelet Count 308 X10*3/uL (160-400); Red Blood Count 4.79 X10*6/uL (4.60-5.80); Red Cell Distribution Width 11.9 % (11.0-16.0); White Blood Count 6.2 X10*3/uL (4.8-10.8)
[2024-08-05 12:20] LABS: Prostate Specific Antigen 3.08 ng/mL (<0.05-4.0)
[2024-08-05 12:40] LABS: Alanine Aminotransferase 77 U/L (0-40); Alkaline Phosphatase 79 U/L (39-117); Anion Gap 12 (12-20); Aspartate Amino Transferase 51 U/L (5-37); Bilirubin Total 0.6 mg/dL (0.0-1.0); Blood Urea Nitrogen 17 mg/dL (9-16); Calcium 9.3 mg/dL (8.4-10.2); Carbon Dioxide 32 mmol/L (22-29); Chloride 102 mmol/L (96-108); Cholesterol 200 mg/dL (<200); Estimated Glomerular Filt Rate > 60; Glucose Random 94 mg/dL (60-115); HDL Cholesterol 60 mg/dL (>40); LDL Cholesterol Calculated 125 mg/dL (<100); Potassium 4.9 mmol/L (3.3-5.1); Sodium 141 mmol/L (135-145); TSH reflex Free T4 1.33 uIU/mL (0.32-4.0); Total Protein 7.7 g/dL (6.5-8.0); Triglycerides 76 mg/dL (<150)
== END 2024-08-05 09:39 | disposition home or self-care (01) ==
LOC: HO.WFDLDS 09:38
PROVIDERS: Visit Provider Internal Medicine
DX: Z00.00 Encounter for general adult medical examination without abnormal findings (principal); I10 Essential (primary) hypertension; I71.20 Thoracic aortic aneurysm, without rupture, unspecified; Z12.5 Encounter for screening for malignant neoplasm of prostate
CPT/HCPCS: 80053; 80061; 84153; 84443; 85025

== ENCOUNTER → 2024-09-16 11:45 | Outpatient (BNV) | payer OTHER, SELFPAY | PROVIDERS: PCP Internal Medicine; Referring Provider Internal Medicine; Visit Provider Internal Medicine | DX: D72.821 Monocytosis (symptomatic) (principal) | CPT/HCPCS: 99204 ==

== ENCOUNTER 2025-02-09 15:03 | Outpatient (AMB) | payer OTHER, SELFPAY ==
--- OUTSIDE RECORDS SUMMARY | 2022-08-02 12:29 | XMS_ITS | Encounter Summary ---
Author Organization Formerly [facility] Address [address] [place] [address] Care Team Providers Care Jewelry Engraver Name Role Phone Pcp, No Primary Care Provider Unavailabl e Encounter Details Date Type Department Care Team (Late st Contact Info) Description 08/02/2022 11:29 AM EST Hospital Encounter [facility] [address] [place] [phone] José Luis Salcedo MD [address] [place], [place] [id number] Social History Tobacco Use Types Packs/Day Years Used Date Smoking Tobacco: Never Smokeless Tobacco: Never Alcohol Use Standard Drinks/Week Comments Yes 0 (1 standard drink = 0.6 oz pur e alcohol) Sex and Gender Information Value Date Recorded Sex Assigned at Not on file Legal Sex Male 6:44 PM EST Gender Identity Not on file Sexual Orientation Not on file COVID-19 Exposure Response Date Recorded In the last 10 days, have yo u been in contact with someone who was confirmed or suspected to have Coronavirus/COVID-19? Unable to assess 08/02/2022 10:59 AM EST documented as of this encounter Plan of Treatment Not on file documented as of this encounter Procedures Procedure Name Priority Date/Time Associated Diagnosis Comments XR CHEST 2 VIEWS Routine 08/02/2022 11:3 4 AM EST Chest congestion documented in this encounter Results * XR Chest 2 views (08/02/2022 11:34 AM EST) Anatomical Region Laterality Modality Chest Computed Radiogr aphy 08/02/2022 11:3 8 AM EST Impressions 08/02/2022 11:38 AM EST Cardiomegaly. Lungs are clear. Narrative 08/02/2022 11:38 AM EST XR CHEST 2 VIEWS: 08/02/2022 11:29 AM Indication: right sided chest pain; hx covid a month ago. Chest congestion Frontal and lateral views of the chest were performed. Cardiomegaly is noted. The lungs are clear. Mediastinal and hilar structures are normal. Osseous structures are intact. Sternotomy wires. Osteopenia. Procedure Note Jayce Lea MD - 08/02/2022 XR CHEST 2 VIEWS: 08/02/2022 11:29 AM Indication: right sided chest pain; hx covid a month ago. Chestcongestion Frontal and lateral views of the chest were performed. Cardiomegaly isnoted. The lungs are clear. Mediastinal and hilar structures are normal.Osseous structures are intact. Sternotomy wires. Osteopenia. IMPRESSION: Cardiomegaly. Lungs are clear. 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
--- NOTE | 2025-02-09 15:12 | A.OFFPC_ITS ---
Vital Signs 02/09/25 15:15 Height 6 ft 3 in Weight 190 lb 2 oz BMI 23.8 BP 124/72 Blood Pressure Location Rt brachial Position Sitting Respiration 14 Pulse 77 Pulse Source Pulse Oximeter Pulse Oximetry (%) 91 L Oxygen Delivery Method Room Air Intake Visit Reasons: follow up Intake Note: Follow up. Had MRI at [place]. Trailer Park Manager Required: No Allergies lisinopril Allergy (Severe, Verified 02/09/25 15:13) Cough bee pollen (bees) Allergy (Unknown, Verified 02/09/25 15:13) Rash Tobacco use date assessed: 02/09/25 Dental Screening Dental Screen Date: 02/09/25 Did you have a dental visit in the last 12 months?: Yes Did you have a dental problem in the last 6 months where you did not have access to dental care?: No Was dental information given to patient?: Patient has dentist HPI HPI Comments History of Present Illness Details The patient is a 59-year-old male with a past medical history of hypertension, thoracic aortic aneurysm status post repair, ocular migraines, alcohol abuse elevated LFTs presenting today for follow-up CV: Follows with [facility] cardiology. Blood pressure controlled. Patient is currently on amlodipine and metoprolol. He had a cardiac catheterization in 2021. Echo 10/2021 with normal EF, mild aortic regurgitation. There was mild dilation of the aortic root. The ascending aorta was moderately dilated measured 4.5 in the pulmonary arterial systolic pressure was 22. He is s/p repair. Recent imaging reassuring showing prior repair intact GI: Has overall decreased his intake to approx 5 drinks per day. Recently was on vacation and consumed much more. Liver function tests have been persistently elevated. No abdominal pain or bloating. Upper endoscopy in 2019 with dilation of esophageal stricture. No interval issues. 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 Got removal of some precancerous lesions. Neuro: MRI performed. Migraines stable Psych: stable Has seen Urology in the past for hydronephrosis. ED stable Heme/onc: Following with heme/onc for monocytosis History of colonic polyp. Colonoscopy 05/2021. ROS CONSTITUTIONAL: Denies weight loss, fever and chills. HEENT: Denies changes in vision and hearing. RESPIRATORY: Denies SOB and cough. CV: Denies palpitations and CP GI: Denies abdominal pain, nausea, vomiting and diarrhea. : Denies dysuria and urinary frequency. MSK: Denies new myalgia and joint pain. SKIN: Denies rash and pruritus. NEUROLOGICAL: Denies headache PSYCHIATRIC: Denies recent changes in mood. PHYSICAL EXAM: GENERAL: Alert and oriented x 3. NAD EYES: EOMI. Anicteric. HENT: Moist mucous membranes. No scleral icterus. No cervical lymphadenopathy. LUNGS: Clear to auscultation bilaterally. CARDIOVASCULAR: Regular rate and rhythm. No murmur. No JVD. ABDOMEN: Soft, non-tender +bs EXTREMITIES: No edema. Non-tender. SKIN: No rashes or lesions. Warm. NEUROLOGIC: No focal neurological deficits. CN II-XII grossly intact PSYCHIATRIC: Cooperative. Appropriate mood and affect [facility] Medical History (Updated 02/12/25 @ 09:10 by Fouzia Darling MD) Abnormal endoscopy of upper gastrointestinal tract Pulmonary hypertension Polyp of colon Peripheral nerve disease Ocular migraine Lumbar pain with radiation down right leg Lower esophageal ring Hypertension Septic shock Acute respiratory failure Hiatal hernia Ganglion of tendon sheath Eosinophilic pneumonia Elevated LFTs Thoracic aortic aneurysm History of cardiomegaly Pollen allergies Alcohol use disorder Surgical History History of dental surgery History of tonsillectomy and adenoidectomy Status post dilatation of esophageal stricture History of colonoscopy History of cardiac catheterization Hx of ascending aorta replacement Family History Mother Alzheimer dementia Father Prostate cancer Sarcoma Sister AAA (abdominal aortic aneurysm) Breast cancer Social History Household Members: Significant Other Both parents involved: No Caregiver staying overnight: No Housing: House Are you a primary resident care coordinator to a significant other at home: No Do you presently have visiting nurse or other home services: No 75 years or older and lives alone: No Alcohol intake: current Alcohol intake frequency: 3 or more drinks per day Alcohol type: beer Patient Tobacco Use Status: Never used Tobacco e-Cigarette/Vaping Use: Never Used Second Hand Smoke Exposure: Yes service: No Current occupational status: employed 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 Current occupational exposures/hazards: No Cognitive needs: No Hearing needs: Yes Vision needs: Yes Questionnaire Thrive Questionnaire Date Thrive assessed: 03/11/25 I am a: Patient What is your living situation today?: I have a steady place to live Within the past 12 months, did the food you bought not last and you didn't have the money to get more?: Never true Within the past 12 months, did you worry whether your food would run out before you got money to buy more?: Never true Do you have trouble paying for medicines?: No Do you have trouble getting transportation to medical appointments?: No Do you have trouble paying your heating and electricity bill?: Yes Do you have trouble taking care of your child, family member or friend?: No Do you have trouble with day-to-day activities such as bathing, preparing meals, shopping, managing finances, etc.?: No Are you currently unemployed and looking for a job?: No Are you interested in more education?: No Please select the resources that you would like help with: Utilities Currently or been in a relationship where the following occur: No concerns reported THRIVE Score: 1 JIGNESH-7 AMB Questionnaire JIGNESH-7 Date JIGNESH - 7 assessed: 08/05/24 Source: Developed by Drs. Jayce Christopher, Nida Fraser, Marcell Damico and colleagues, with an educational robb from [employer]. Physical exam (Primary Care) Vital Signs: Last Vital Signs Pulse 77 02/09/25 15:15 Resp 14 02/09/25 15:15 BP 124/72 02/09/25 15:15 Pulse Ox 91 L 02/09/25 15:15 Oxygen Delivery Method Room Air 02/09/25 15:15 BMI result Body Mass Index 23.8 Tobacco/Smoking Status: Tobacco use Status Tobacco use date assessed 02/09/25 02/09/25 15:18 Patient Tobacco Use Status Never used Tobacco 02/09/25 15:12 e-Cigarette/Vaping Use Never Used 02/09/25 15:12 Thrive Assessment: Date of Thrive Assessment Date Thrive assessed 08/05/24 02/09/25 15:12 Currently or been in a relationship where the following occur: No concerns reported Coding Level of Care Code Est Pt Level 4 (22602) Complex EM visit Add On G2211 Diagnoses Primary hypertension I10 Hypertension type: primary hypertension Thoracic aortic aneurysm without rupture, unspecified part I71.20 Presence of rupture: without rupture Thoracic aorta location: unspecified Elevated LFTs R79.89 Abnormal CBC R79.89 Assessment & Plan Assessment & Plan (1) Hypertension: Code(s): I10 - Essential (primary) hypertension Category: Medical Qualifiers: Hypertension type: primary hypertension Qualified Code(s): I10 - Essential (primary) hypertension (2) Thoracic aortic aneurysm: Code(s): I71.20 - Thoracic aortic aneurysm, without rupture, unspecified Category: Medical Qualifiers: Presence of rupture: without rupture Thoracic aorta location: unspecified Qualified Code(s): I71.20 - Thoracic aortic aneurysm, without rupture, unspecified (3) Elevated LFTs: Code(s): R79.89 - Other specified abnormal findings of blood chemistry Category: Medical (4) Abnormal CBC: Code(s): R79.89 - Other specified abnormal findings of blood chemistry Category: Medical Plan 59 year old for follow up Interval history reviewed CV: stable BP, repair BH: stable on duloxetine GERD-stable on PPI. Decrease etoh use
[2025-02-09 15:15] VITALS: BP 124/72; PULSE 77; RESP 14; O2SAT 91; BMI 23.8
--- OUTSIDE RECORDS SUMMARY | 2025-02-09 20:29 | XMS_ITS | Clinical Summary ---
Author Organization [facility] Address [facility] [place] [address] Care Team Providers Care Novelty Chain Maker Name Role Phone Fouzia Darling MD Primary Care Provider [phone] Allergies No known active allergies Medications LORazepam (Ativan) 2 mg tablet Take 1 tablet (2 mg total) by mouth every 4 (four) hours as needed for anxiety (shaking) for up to 3 days. 6 tablet 07/08/2024 Active Active Problems No known active problems Social History Tobacco Use Types Packs/Day Years [...] 89 07/08/2024 8:43 PM EST Temperature 36.8 C (98.3 F) 07/08/2024 7:25 PM EST Respiratory Rate 16 07/08/2024 8:43 PM EST [...] HIV Screening 1964 Hepatitis C Screening 1982 Pneumococcal Vaccine, 50+ Years (1 of 1 - PCV) 2014 Zoster Vaccines (1 of 2) 2014 COVID-19 Vaccine (1 - season) 2025 Influenza Vaccine (#1) 2025 2, 05/09/2021, 03/15/2020, Additional history exists DTaP,Tdap,and [...] on patient's age to complete this topic Insurance [facility] OPEN ACCESS Care Teams Novelty Chain Maker Relationship Specialty Start Date End Date Fouzia Darling MD [address] [place] [phone] PCP - General Internal Medicine 07/08/24
--- OUTSIDE RECORDS SUMMARY | 2025-02-09 20:29 | XMS_ITS | Clinical Summary ---
Author Organization [facility] Address [address] [place] [address] Care Team Providers Care Veneer Cutter Name Role Phone Pcp, No Primary Care Provider Unavailabl e Allergies Active Allergy Reactions Criticality Noted Date Comments Bee Venom Anaphylaxis High 08/02/2022 Lisinopril Cough Low 08/02/2022 Medications AMLODIPINE BENZOATE PO amlodipine Active DULOXETINE HCL PO duloxetine Active Echinacea 650 MG Cap Take 650 mg by mouth. 2 Active Cyanocobalamin (VITAMIN B 12 PO) Take 1 tablet by mouth. 2 Active vitamin E 100 UNIT capsule Take by mouth. 2 Active amLODIPine (NORVASC) 10 MG tablet Take 10 mg by mouth. 2 Active PANTOprazole (PROTONIX) 40 MG EC tablet Take 40 mg by mouth. 2 Active Potassium Gluconate 550 MG Tab Take 550 mg by mouth. 2 Active doxycycline (MONODOX) 100 MG capsuleIndicati ons:Walking pneumonia Take 1 capsule (100 mg total) by mouth 2 (two) times a day. 14 capsule 3 Active benzonatate (TESSALON) 200 MG capsuleIndicati ons:Post-viral cough syndrome,Walkin g pneumonia Take 1 capsule (200 mg total) by mouth 3 (three) times a day as needed for cough. 20 capsule 3 Active fluticasone (FloVENT HFA) 44 mcg/puff inhalerIndicati ons:Post-viral cough syndrome Inhale 1 puff 2 (two) times a day. 10.6 g 3 Active metoPROLOL SUCCINATE (TOPROL-XL) 25 MG 24 [...] Discern Expert Essential hypertension 08/12/2021 Neuropathy 08/12/2021 Social History Tobacco Use Types Packs/Day Years [...] 98 07/08/2024 3:36 PM EST Temperature 36.8 C (98.2 F) 07/08/2024 3:36 PM EST Respiratory Rate 16 07/08/2024 3:36 PM EST [...] Zoster (Shingles) Vaccine (1 of 2) 2014 RSV Vaccine 60 years and older and Patients (1 - Risk 60-74 years 1-dose series) 2024 Influenza Vaccine 12/26/2024 05/11/2022, , 03/15/2020, Additional history exists COVID-19 Vaccine ( - 2023- season) 2025 Hepatitis B Vaccines Aged Out No long er eligible based on patient's age to complete this topic Insurance [facility] Care Teams Veneer Cutter Relationship Specialty Start Date End Date Pcp, No PCP - General General Medicine 08/02/22
--- OUTSIDE RECORDS SUMMARY | 2025-02-09 20:29 | XMS_ITS ---
Author Name [facility] Organization Unknown Results Test Name/Text Value Interpretation Date Range Source ANION GAP 11.0 mmol/L Normal 07/09/2024 3 - 11 [facility] BICARBONATE 28.0 mmol/L Normal 07/09/2024 23 - 32 [facility] CALCIUM, TOTAL 10.6 mg/dL Above high normal 07/09/2024 8.4 - 10.2 [facility] SODIUM 139.0 mmol/L Normal 07/09/2024 137 - 144 [facility] GLOMERULAR FILTRATION RATE ML/MIN/1.73 SQ M.PREDICTED 101.0 mL/min/1.73m*2 Normal 07/09/2024 60 - [facility] POTASSIUM 4.8 mmol/L Normal 07/09/2024 3.6 - 5.1 [facility] CREATININE 0.8 mg/dL Normal 07/09/2024 0.6 - 1.2 [facility] GLUCOSE 93.0 mg/dL Normal 07/09/2024 70 - 200 [facility] CHLORIDE 100.0 mmol/L Normal 07/09/2024 100 - 111 [facility] UREA NITROGEN 14.0 mg/dL Normal 07/09/2024 8 - 24 [facility] ALBUMIN, AUTOMATED 4.7 g/dL Normal 07/09/2024 3.8 - 5.3 [facility] ALKALINE PHOSPHATASE 106.0 U/L Normal 07/09/2024 39 - 113 [facility] BILIRUBIN, DIRECT 0.4 mg/dL Normal 07/09/2024 0 - 0.5 [facility] AST (SGOT) 100.0 U/L Above high normal 07/09/2024 17 - 35 [facility] PROTEIN TOTAL 8.1 g/dL Normal 07/09/2024 6.2 - 8.1 [facility] ALT (SGPT) 101.0 U/L Above high normal 07/09/2024 8 - 39 [facility] BILIRUBIN, TOTAL 0.8 mg/dL Normal 07/09/2024 0.1 - 1.2 [facility] LACTIC ACID 0.8 mmol/L Normal 07/09/2024 0.5 - 1.9 [facility] HEMOGLOBIN 15.5 g/dL Normal 07/09/2024 13 - [address] [facility] [address] 0.0 10*3/uL Normal 07/09/2024 0 - 0. 2 [facility] MCHC 33.3 g/dL Normal 07/09/2024 32 - 36 [facility] WHITE CELL COUNT 5.2 10*3/uL Normal 07/09/2024 3.8 - 10.6 [facility] MCV 96.7 fL Normal 07/09/2024 80 - 100 [facility] LYMPHOCYTE % 10.4 % Below low normal 07/09/2024 20 - 50 [facility] AUTO NRBC % 0.0 % Normal 07/09/2024 0 - 0 [facility] PLATELET COUNT 160.0 10*3/uL Normal 07/09/2024 150 - 440 [facility] MCH 32.2 pg Normal 07/09/2024 26 - 34 [facility] BASOPHILS % 0.6 % Normal 07/09/2024 0 - [address] [facility] [address] 3.7 10*3/uL Normal 07/09/2024 1.4 - 6.3 [facility] RBC DISTRIBUTION WIDTH 12.3 % Normal 07/09/2024 11.6 - 14.8 [facility] EOSINOPHIL % 0.2 % Normal 07/09/2024 0 - [address] [facility] [address] 0.5 10*3/uL Below low normal 07/09/2024 0.7 - 4.5 [facility] MONOCYTE % 16.9 % Above high normal 07/09/2024 4 - [address] [facility] [address] 0.0 10*3/uL Normal 07/09/2024 0 - 0.3 [facility] IMMATURE GRANULOCYTE % 0.2 % Normal 07/09/2024 0 - 0.6 [facility] NEUTROPHIL % 71.7 % Above high normal 07/09/2024 40 - [address] [facility] [address] 0.9 10*3/uL Above high normal 07/09/19 25 0.2 - 0.8 [facility] HEMATOCRIT 46.5 % Normal 07/09/2024 40 - 52 [facility] RED CELL COUNT 4.81 10*6/ L Normal 07/09/2024 4.4 - 5.9 [facility] INFLUENZA B PCR (CEPHEID) Not Detected Normal 07/09/2024 [facility] RSV PCR (CEPHEID) Not Detected Normal 07/09/2024 [facility] INFLUENZA A PCR (CEPHEID) Not Detected Normal 07/09/2024 [facility] SARS-COV-2 PCR (CEPHEID) Negative Normal 07/09/2024 [facility] POCT GLUCOSE 87.0 mg/dL Normal 07/08/2024 70 - 200 [facility] History of Medication Use Medication Directions Dispensed Refills Start Date End Date Stat us doxycycline (MONODOX) 100 MG capsule Take 1 capsule (100 mg total) by mouth 2 (two) times a day. 08/02/2022 08/10/2022 active benzonatate (TESSALON) 200 MG capsule Take 1 capsule (200 mg total) by mouth 3 (three) times a day as needed for cough. 08/02/2022 active fluticasone (FloVENT HFA) 44 mcg/puff inhaler Inhale 1 puff 2 (two) times a day. 08/02/2022 active Cyanocobalamin (VITAMIN B 12 PO) Take 1 tablet by mouth. 05/02/2022 active PANTOprazole (PROTONIX) 40 MG EC tablet Take 40 mg by mouth. 05/02/2022 active ascorbic acid (VITAMIN C) 250 MG tablet Take 250 mg by mouth daily. active metoPROLOL SUCCINATE (TOPROL-XL) 25 MG 24 hr tablet Take 25 mg by mouth 2 times a day. active Allergies Allergen Reaction Severity Comment Documented Date Source Statu s LISINOPRIL COUGH 08/02/2022 [facility] active BEE VENOM ANAPHYLAXIS [facility] Problems Problem Status Onset Date Problem Type Date of Resoluti on Source Ganglion of tendon sheath active 2022-08-02 ProblemAct [facility] Polyp of colon active 2022-08-02 ProblemAct [facility] Thoracic aortic aneurysm without rupture active 2022-08-02 ProblemAct [facility] Tremor of both hands active [facility]DiagnosisA ct [facility] Eosinophilic pneumonia active 2022-08-02 ProblemAct [facility] History of acute respiratory failure active 2022-08-02 ProblemAct [facility] Encounter for screening laboratory testing for COVID-19 virus active EncounterDiagnosisAct [facility] Lumbar pain with radiation down right leg active 2022-08-02 ProblemAct [facility] Cardiomegaly active 2022-08-02 ProblemAct [facility] Hiatal hernia active 2022-08-02 ProblemAct [facility] Pulmonary HTN active 2022-08-02 ProblemAct [facility] History of septic shock active 2022-08-02 ProblemAct [facility] Alcohol abuse active 2022-08-02 ProblemAct [facility] Neuropathy active 2021-08-12 ProblemAct [facility] Allergy to pollen active 2022-08-02 ProblemAct [facility] Chills active EncounterDiagnosisAct [facility] Lower esophageal ring active 2022-08-02 ProblemAct [facility] Disease due to severe acute respiratory syndrome coronavirus 2 (SARS-CoV-2) active 2022-07-01 ProblemAct [facility] Essential hypertension active 2021-08-12 ProblemAct [facility] Encounters Encounter Type Encounter Reason Primary Diagnosis Location Date Emergency Alcohol use, unspecified with withdrawal Alcohol use, unspecified with withdrawal, uncomplicated [facility] 07/08/2024 Ambulatory [place] [facility] 07/08/2024 Ambulatory [facility] 08/02/2022 Ambulatory Personal history of COVID-19 [facility] 08/02/2022 Care Team Organization Name Specialty Phone Email Start Date End Da te [facility] ABRAHAN GALVAN Primary Care [facility] 07/09/2024 [email or web address] 08/02/2022 08/18/2024 [facility] NO PCP Primary Care 08/02/2022 08/02/2022
== END 2025-02-09 16:42 | disposition home or self-care (01) ==
LOC: HO.HMCFM 15:04
PROVIDERS: PCP Internal Medicine; Visit Provider Internal Medicine
DX: I10 Essential (primary) hypertension (principal); I71.20 Thoracic aortic aneurysm, without rupture, unspecified; R79.89 Other specified abnormal findings of blood chemistry